=== PATIENT | male | born 1935 | race Caucasian/White ===

== ENCOUNTER → 2017-01-11 | Outpatient (CLI) | payer MEDICARE, OTHER ==
[2017-01-11 14:53] LABS: CHLORIDE,CL 101 mmol/L (98-110); SODIUM,NA 138 mmol/L (136-146)
== END ==
LOC: MW.CHFP 13:48
PROVIDERS: ATTEND Emergency Medicine
DX: Z51.81 Encounter for therapeutic drug level monitoring (principal); E11.9 Type 2 diabetes mellitus without complications; I10 Essential (primary) hypertension; I48.91 Unspecified atrial fibrillation; Z79.01 Long term (current) use of anticoagulants
CPT/HCPCS: 36415; 80048; 83036; 85027; 85610; G0463

== ENCOUNTER 2017-01-21 | Emergency (ER) | payer MEDICARE, OTHER ==
--- NOTE | 2017-01-21 00:16 | EDM.PDOC ---
ED HISTORY OF PRESENT ILLNESS - General Chief Complaint: Respiratory Problem Stated Complaint: TROUBLE BREATHING Time Seen by Provider: 01/21/17 00:15 Source of Information: Reports: Patient - History of Present Illness INITIAL COMMENTS - FREE TEXT/NARRATIVE: HISTORY AND PHYSICAL: History of present illness: [] Patient presents with multiple complaints, but later he denied having. Seems that he is having some trouble in his home making it to the bathroom as he has urge to urinate, he then urinates and is brief, and then when he gets to the bathroom he no longer has to urinate. He had complained of some shortness of breath however he is not short of breath , denies any shortness of breath at current, no orthopnea. He has loose stools and is unable to make it to the bathroom sometimes he soils his brief this is concerning to him and his He has known history of COPD, BPH, diabetes, cardiac history He has recent admission on file with similar complaints at that time he is having some difficulty with COPD and was admitted for such, he did have a full stool workup with negative stool cultures negative C. difficile Here in the emergency room when asked to provide a urine here was able to provide urine without any difficulty. Review of systems: As per history of present illness and below otherwise all systems reviewed and negative. Past medical history: As per history of present illness and as reviewed below otherwise noncontributory. Surgical history: As per history of present illness and as reviewed below otherwise noncontributory. Social history: No reported history of drug or alcohol abuse. Family history: As per history of present illness and as reviewed below otherwise noncontributory. Physical exam: HEENT: Atraumatic, normocephalic, pupils reactive, negative for conjunctival pallor or scleral icterus, mucous membranes moist, throat clear, neck supple, nontender, trachea midline. Lungs: Clear to auscultation, breath sounds equal bilaterally, chest nontender. Heart: S1S2, regular, negative for clicks, rubs, or JVD. Abdomen: Soft, nondistended, nontender. Negative for masses or hepatosplenomegaly. Negative for costovertebral tenderness. Pelvis: Stable nontender. Genitourinary: Deferred. Rectal: Deferred. Extremities: Atraumatic, negative for cords or calf pain. Neurovascular unremarkable. Neuro: Awake, alert, oriented. Cranial nerves II through XII unremarkable. Cerebellum unremarkable. Motor and sensory unremarkable throughout. Exam nonfocal. Diagnostics: [] As below EKG Chest one view Therapeutics: []none in the ER A prescription of Flomax was provided Followup with Dr. Barbosa concerning BPH Followup with primary care as needed Impression: [] Chronic history of baseline Definitive disposition and diagnosis as appropriate pending reevaluation and review of above. - Related Data Allergies/ADRs: Allergies Allergy/AdvReac Type Severity Reaction Status Date / Time No Known Allergies Allergy Verified 01/21/17 00:02 Home Meds: Home Meds Albuterol Sulfate [Albuterol Sulfate HFA] 2 inh IH Q6HR PRN 04/19/14 [History] Brimonidine Tartrate [Alphagan P 0.1% Ophth Soln] 1 drop EYEBOTH BID 04/19/14 [ History] Latanoprost [Xalatan 0.005% Ophth Soln] 1 drop EYEBOTH BEDTIME 04/19/14 [History ] PARoxetine HCl [Paroxetine HCl] 10 mg PO BID 04/19/14 [History] QUEtiapine Fumarate [Quetiapine Fumarate] 50 mg PO BEDTIME 04/19/14 [History] atorvaSTATin Calcium [Atorvastatin Calcium] 40 mg PO BEDTIME 04/19/14 [History] Aspirin [Adan Chewable Aspirin] 81 mg PO DAILY #30 tab.chew 04/28/14 [Rx] Digoxin [Lanoxin] 125 mcg PO DAILY #30 tab 04/28/14 [Rx] Warfarin [Coumadin] 5 mg PO DAILY #10 tablet 06/17/14 [Rx] Oxybutynin 2.5 mg PO BEDTIME 08/11/16 [History] Diltiazem [Cardizem CD] 120 mg PO DAILY 01/03/17 [History] Furosemide [Lasix] 20 mg PO DAILY 01/03/17 [History] Docusate Sodium/Sennosides [Senna Plus] 1 tab PO SUTUTH@2100 01/04/17 [History] buPROPion [buPROPion XL] 150 mg PO DAILY 01/04/17 [History] metFORMIN HCl [Metformin HCl] 1,000 mg PO BIDMEALS 01/04/17 [History] Metoprolol Tartrate [Lopressor] 150 mg PO BID #180 tablet 01/07/17 [Rx] Past Medical History HEENT History: Reports: Glaucoma, Hard of hearing Cardiovascular History: Reports: Afib, High cholesterol, Hypertension Respiratory History: Reports: COPD, PE Other Gastrointestinal History: recurrent cholecystitis Genitourinary History: Reports: Urinary incontinence Psychiatric History: Reports: Depression Endocrine/Metabolic History: Reports: Diabetes, type II Dermatologic History: Reports: Other (see below) Other Dermatologic History: wound not healing left leg - Past Surgical History Cardiovascular Surgical History: Reports: Pacer GI Surgical History: Reports: Appendectomy, Cholecystectomy, Hernia, inguinal Social & Family History - Family History Family Medical History: Noncontributory HEENT: Reports: Cataract, Impaired vision GI: Reports: Other (see below) Other GI Family History: unable to recall OBGYN: Reports: Endocrine/Metabolic: Reports: Diabetes, type II - Tobacco Use Smoking Status *Q: Former Smoker Years of Tobacco use: 20 Used Tobacco, but Quit: Yes Month Tobacco Last Used: 40 yrs ago Second Hand Smoke Exposure: No - Caffeine Use Caffeine Use: Reports: None - Alcohol Use Days Per Week of Alcohol Use: 0 - Recreational Drug Use Recreational Drug Use: No ED ROS GENERAL - Review of Systems Review Of Systems: ROS reveals no pertinent complaints other than HPI. ED EXAM, GENERAL - Physical Exam Exam: See Below Course - Vital Signs Last Recorded V/S: Last Vital Signs Temp 35.7 C 01/21/17 00:03 Pulse 70 01/21/17 00:03 Resp 19 01/21/17 00:03 BP 149/70 H 01/21/17 00:03 Pulse Ox 93 L 01/21/17 00:03 - Orders/Labs/Meds Orders: Active Orders 24 hr Category Date Time Status EKG Documentation Completion [RC] STAT Care 01/21/17 00:14 Active Chest 1V Frontal [CR] Stat Exams 01/21/17 00:14 Taken Labs: Laboratory Tests 01/21/17 01/21/17 01/21/17 Range/Units 00:25 00:25 00:25 WBC 10.91 (4.0-11.0) K/uL RBC 4.61 (4.50-5.90) M/uL Hgb 14.1 (13.0-17.0) g/dL Hct 43.9 (38.0-50.0) % MCV 95.2 (80.0-98.0) fL MCH 30.6 (27.0-32.0) pg MCHC 32.1 (31.0-37.0) g/dL RDW Std Deviation 48.9 (28.0-62.0) fl RDW Coeff of Yancy 14 (11.0-15.0) % Plt Count 244 (150-400) K/uL MPV 10.10 (7.40-12.00) fL Neut % (Auto) 64.7 (48.0-80.0) % Lymph % (Auto) 24.8 (16.0-40.0) % [place] % (Auto) 7.6 (0.0-15.0) % Eos % (Auto) 2.4 (0.0-7.0) % Baso % (Auto) 0.5 (0.0-1.5) % Neut # 7.1 H (1.4-5.7) K/uL Lymph # 2.7 H (0.6-2.4) K/uL [place] # 0.8 (0.0-0.8) K/uL Eos # 0.3 (0.0-0.7) K/uL Baso # 0.1 (0.0-0.1) K/uL Nucleated RBC % 0.0 /100WBC Nucleated RBCs # 0 K/uL INR (0.86-1.11) Sodium 137 (136-146) mmol/L Potassium 4.2 (3.5-5.1) mmol/L Chloride 101 (98-110) mmol/L Carbon Dioxide 25 (21-31) mmol/L BUN 17 (6.0-23.0) mg/dL Creatinine 1.2 (0.6-1.5) mg/dL Est Cr Clr Drug Dosing 51.54 mL/min Estimated GFR (MDRD) 58.4 ml/min Glucose 158 H (60-110) mg/dL Calcium 8.7 L (8.8-10.8) mg/dL Total Bilirubin 0.5 (0.1-1.5) mg/dL AST 27 (5-40) IU/L ALT 38 (8-54) IU/L Alkaline Phosphatase 60 (40-150) Troponin I < 0.10 (0.0-0.29) NG/ML B-Natriuretic Peptide (<100) PG/ML Total Protein 6.0 (6.0-8.0) g/dL Albumin 3.2 L (3.4-4.8) g/dL Globulin 2.8 (2.0-3.5) g/dL Albumin/Globulin Ratio 1.1 L (1.3-2.8) Urine Color Urine Appearance Urine pH (5.0-8.0) Ur Specific [place] (1.001-1.035) Urine Protein (NEGATIVE) mg/dL Urine Glucose (UA) (NEGATIVE) mg/dL Urine Ketones (NEGATIVE) mg/dL Urine Occult Blood (NEGATIVE) Urine Nitrite (NEGATIVE) Urine Bilirubin (NEGATIVE) Urine Urobilinogen (<2.0) EU/dL Ur Leukocyte Esterase (NEGATIVE) Urine RBC (0-2/HPF) Urine WBC (0-5/HPF) Ur Epithelial Cells (NONE-FEW) Urine Bacteria (NEGATIVE) Urine Sperm (NEGATIVE) 01/21/17 01/21/17 01/21/17 Range/Units 00:25 00:29 00:40 WBC (4.0-11.0) K/uL RBC (4.50-5.90) M/uL Hgb (13.0-17.0) g/dL Hct (38.0-50.0) % MCV (80.0-98.0) fL MCH (27.0-32.0) pg MCHC (31.0-37.0) g/dL RDW Std Deviation (28.0-62.0) fl RDW Coeff of Yancy (11.0-15.0) % Plt Count (150-400) K/uL MPV (7.40-12.00) fL Neut % (Auto) (48.0-80.0) % Lymph % (Auto) (16.0-40.0) % [place] % (Auto) (0.0-15.0) % Eos % (Auto) (0.0-7.0) % Baso % (Auto) (0.0-1.5) % Neut # (1.4-5.7) K/uL Lymph # (0.6-2.4) K/uL [place] # (0.0-0.8) K/uL Eos # (0.0-0.7) K/uL Baso # (0.0-0.1) K/uL Nucleated RBC % /100WBC Nucleated RBCs # K/uL INR 2.53 H (0.86-1.11) Sodium (136-146) mmol/L Potassium (3.5-5.1) mmol/L Chloride (98-110) mmol/L Carbon Dioxide (21-31) mmol/L BUN (6.0-23.0) mg/dL Creatinine (0.6-1.5) mg/dL Est Cr Clr Drug Dosing mL/min Estimated GFR (MDRD) ml/min Glucose (60-110) mg/dL Calcium (8.8-10.8) mg/dL Total Bilirubin (0.1-1.5) mg/dL AST (5-40) IU/L ALT (8-54) IU/L Alkaline Phosphatase (40-150) Troponin I (0.0-0.29) NG/ML B-Natriuretic Peptide 132 H (<100) PG/ML Total Protein (6.0-8.0) g/dL Albumin (3.4-4.8) g/dL Globulin (2.0-3.5) g/dL Albumin/Globulin Ratio (1.3-2.8) Urine Color YELLOW Urine Appearance CLEAR Urine pH 6.0 (5.0-8.0) Ur Specific [place] 1.015 (1.001-1.035) Urine Protein NEGATIVE (NEGATIVE) mg/dL Urine Glucose (UA) 250 H (NEGATIVE) mg/dL Urine Ketones NEGATIVE (NEGATIVE) mg/dL Urine Occult Blood TRACE-LYSED (NEGATIVE) Urine Nitrite NEGATIVE (NEGATIVE) Urine Bilirubin NEGATIVE (NEGATIVE) Urine Urobilinogen 0.2 (<2.0) EU/dL Ur Leukocyte Esterase SMALL (NEGATIVE) Urine RBC 0-1 (0-2/HPF) Urine WBC 0-2 (0-5/HPF) Ur Epithelial Cells RARE (NONE-FEW) Urine Bacteria RARE (NEGATIVE) Urine Sperm 0-1 (NEGATIVE) Departure - Departure Time of Disposition: 01:34 Disposition: Home, Self-Care 01 Condition: good Clinical Impression: BPH (benign prostatic hyperplasia) Forms: ED Department Discharge Additional Instructions: Medications as prescribed Followup with Dr. Barbosa concerning BPH Return if symptoms persist or worsen Followup with primary care in the interim as needed [facility] - Primary [facility] [address] [place] [id number] [facility] [address] [place] [address] The following information is given to patients seen in the emergency department who are being discharged to home. This information is to outline your options for follow-up care. We provide all patients seen in our emergency department with a follow-up referral. The need for follow-up, as well as the timing and circumstances, are variable depending upon the specifics of your emergency department visit. If you don't have a primary care physician on staff, we will provide you with a referral. We always advise you to contact your personal physician following an emergency department visit to inform them of the circumstance of the visit and for follow-up with them and/or the need for any referrals to a consulting specialist. The emergency department will also refer you to a specialist when appropriate. This referral assures that you have the opportunity for follow-up care with a specialist. All of these measure are taken in an effort to provide you with optimal care, which includes your follow-up. Under all circumstances we always encourage you to contact your private physician who remains a resource for coordinating your care. When calling for follow-up care, please make the office aware that this follow-up is from your recent emergency room visit. If for any reason you are refused follow-up, please contact the [facility] emergency department at and asked to speak to the emergency department charge nurse. - My Orders Last 24 Hours: My Active Orders 01/21/17 00:14 EKG Documentation Completion [RC] STAT Chest 1V Frontal [CR] Stat - Assessment/Plan Last 24 Hours: My Active Orders 01/21/17 00:14 EKG Documentation Completion [RC] STAT Chest 1V Frontal [CR] Stat
[2017-01-21 01:44] VITALS: BP 139/74
--- NOTE | 2017-01-21 19:06 | CR ---
EXAM DATE: 01/21/17 PATIENT'S AGE: 81 Patient: ROSELYN MELISSA Facility: [place], [place] Site . Site : [id number] Study: XRay Chest [id number] 12:38:43 AM Ordering Physician: Katerina Corona Final Report: INDICATION: Pain TECHNIQUE: Chest 1 view. COMPARISON: 01/03/2017 FINDINGS: Cardiovascular and mediastinum: Heart size and vasculature are normal in caliber and appearance. Mediastinum is within normal limits. Left-sided transvenous pacer device. Lungs and pleural space: Lungs are clear. No sign of infiltrate or mass. No sign of pleural effusion. No pneumothorax. Bones and soft tissues: No significant findings. IMPRESSION: Unremarkable chest. Dictated by Dex Mcelroy MD @ 01/21/2017 12:41:55 AM Dictated by: Dex Mcelroy MD @ 01/21/2017 00:42:02 (Electronic Signature) Report Signed by Proxy and Original Signed Document filed in the Medical Record. MTDD
== END 2017-01-21 01:42 | disposition home or self-care (01) ==
LOC: MW.ED
DX: N40.1 Benign prostatic hyperplasia with lower urinary tract symptoms (principal); I10 Essential (primary) hypertension; J44.9 Chronic obstructive pulmonary disease, unspecified; E78.00 Pure hypercholesterolemia, unspecified; F32.9 Major depressive disorder, single episode, unspecified; E11.9 Type 2 diabetes mellitus without complications; Z79.01 Long term (current) use of anticoagulants; Z90.49 Acquired absence of other specified parts of digestive tract; Z95.0 Presence of cardiac pacemaker; Z79.82 Long term (current) use of aspirin; Z79.899 Other long term (current) drug therapy; Z79.84 Long term (current) use of oral hypoglycemic drugs; Z87.891 Personal history of nicotine dependence; R39.15 Urgency of urination
CPT/HCPCS: 51798; 71010; 71010-26; 76872; 80053; 81001; 83880; 84484; 85025; 85610; 87804; 93005; 99202; 99283; 99285-25

== ENCOUNTER → 2017-01-21 | Outpatient (CLI) | payer MEDICARE, OTHER | LOC: MW.CHUR 10:41 | CPT/HCPCS: 51798; 76872; 99202 ==

== ENCOUNTER 2017-01-23 00:52 | Inpatient (IN) | payer MEDICARE, OTHER ==
--- NOTE | 2017-01-23 01:18 | EDM.PDOC ---
ED HPI GENERAL MEDICAL PROBLEM - General Chief Complaint: General Stated Complaint: FELL Time Seen by Provider: 01/23/17 01:07 - History of Present Illness INITIAL COMMENTS - FREE TEXT/NARRATIVE: HISTORY AND PHYSICAL: History of present illness: Patient is 81 year white male with history of dementia whose had a history of frequent falls who presents status post fall which the circumstances are unknown patient does not have any complaints upon arrival here he was found by his he is reportedly on Coumadin as well as multiple other medications he denies chest pain shortness of breath palpitations back hip or extremity pain Review of systems: As per history of present illness and below otherwise all systems reviewed and negative. Past medical history: As per history of present illness and as reviewed below otherwise noncontributory. Surgical history: As per history of present illness and as reviewed below otherwise noncontributory. Social history: No reported history of drug or alcohol abuse. Family history: As per history of present illness and as reviewed below otherwise noncontributory. Physical exam: HEENT: Atraumatic, normocephalic, pupils reactive, negative for conjunctival pallor or scleral icterus, mucous membranes moist, throat clear, neck supple, nontender, trachea midline. Lungs: Clear to auscultation, breath sounds equal bilaterally, chest nontender. Heart: S1S2, regular, negative for clicks, rubs, or JVD. Abdomen: Soft, nondistended, nontender. Negative for masses or hepatosplenomegaly. Negative for costovertebral tenderness. Pelvis: Stable nontender. Genitourinary: Deferred. Rectal: Deferred. Extremities: Atraumatic, negative for cords or calf pain. Neurovascular unremarkable. Neuro: Awake, alert, follows commands moves all extremities limited grossly nonfocal exam Diagnostics: CBC CMP troponin PT INR UA chest x-ray EKG CT brain Therapeutics: IV O2 monitor Impression: #1 observation status post fall #2 dementia Definitive disposition and diagnosis as appropriate pending reevaluation and review of above. - Related Data Allergies Allergy/AdvReac Type Severity Reaction Status Date / Time No Known Allergies Allergy Verified 01/23/17 00:54 Home Meds: Home Meds Albuterol Sulfate [Albuterol Sulfate HFA] 2 inh IH Q6HR PRN 04/19/14 [History] Brimonidine Tartrate [Alphagan P 0.1% Ophth Soln] 1 drop EYEBOTH BID 06/02/14 [ History] Latanoprost [Xalatan 0.005% Ophth Soln] 1 drop EYEBOTH BEDTIME 04/19/14 [History ] PARoxetine HCl [Paroxetine HCl] 10 mg PO BID 04/19/14 [History] QUEtiapine Fumarate [Quetiapine Fumarate] 50 mg PO BEDTIME 04/19/14 [History] atorvaSTATin Calcium [Atorvastatin Calcium] 40 mg PO BEDTIME 04/19/14 [History] Aspirin [Adan Chewable Aspirin] 81 mg PO DAILY #30 tab.chew 04/28/14 [Rx] Digoxin [Lanoxin] 125 mcg PO DAILY #30 tab 04/28/14 [Rx] Warfarin [Coumadin] 5 mg PO DAILY #10 tablet 06/17/14 [Rx] Oxybutynin 2.5 mg PO BEDTIME 08/11/16 [History] Diltiazem [Cardizem CD] 120 mg PO DAILY 01/03/17 [History] Furosemide [Lasix] 20 mg PO DAILY 01/03/17 [History] buPROPion [buPROPion XL] 150 mg PO DAILY 01/04/17 [History] metFORMIN HCl [Metformin HCl] 1,000 mg PO BIDMEALS 01/04/17 [History] Metoprolol Tartrate [Lopressor] 150 mg PO BID #180 tablet 01/07/17 [Rx] Bisacodyl [Gentle Laxative] 10 mg RC 01/23/17 [History] Past Medical History - Past Health History Medical/Surgical History: Denies Medical/Surgical History HEENT History: Reports: Glaucoma, Hard of hearing Cardiovascular History: Reports: Afib, High cholesterol, Hypertension Respiratory History: Reports: COPD, PE Other Gastrointestinal History: recurrent cholecystitis Genitourinary History: Reports: Urinary incontinence Musculoskeletal History: Reports: None Psychiatric History: Reports: Dementia, Depression Endocrine/Metabolic History: Reports: Diabetes, type II Dermatologic History: Reports: Other (see below) Other Dermatologic History: wound not healing left leg - Infectious Disease History Infectious Disease History: Reports: None - Past Surgical History Cardiovascular Surgical History: Reports: Pacer GI Surgical History: Reports: Appendectomy, Cholecystectomy, Hernia, inguinal Social & Family History - Family History Family Medical History: Noncontributory HEENT: Reports: Cataract, Impaired vision GI: Reports: Other (see below) Other GI Family History: unable to recall OBGYN: Reports: Endocrine/Metabolic: Reports: Diabetes, type II - Tobacco Use Smoking Status *Q: Never Smoker Years of Tobacco use: 20 Used Tobacco, but Quit: Yes Month Tobacco Last Used: 40 yrs ago Second Hand Smoke Exposure: No - Caffeine Use Caffeine Use: Reports: None - Alcohol Use Days Per Week of Alcohol Use: 0 - Recreational Drug Use Recreational Drug Use: No ED ROS GENERAL - Review of Systems Review Of Systems: ROS reveals no pertinent complaints other than HPI. ED EXAM, GENERAL - Physical Exam Exam: See Below (See dictation) Course - Vital Signs Last Recorded V/S: Last Vital Signs Temp 36.0 C 01/23/17 00:54 Pulse 70 01/23/17 00:54 Resp 16 01/23/17 00:54 BP 128/61 01/23/17 00:54 Pulse Ox 96 01/23/17 00:54 - Orders/Labs/Meds Orders: Active Orders 24 hr Category Date Time Status EKG Documentation Completion [RC] STAT Care 01/23/17 01:12 Active Chest 1V Frontal [CR] Stat Exams 01/23/17 01:13 Taken Head wo Cont [CT] Stat Exams 01/23/17 01:13 Taken Labs: Laboratory Tests 01/23/17 01/23/17 01/23/17 Range/Units 01:25 01:25 01:25 WBC 9.43 (4.0-11.0) K/uL RBC 4.13 L (4.50-5.90) M/uL Hgb 12.8 L (13.0-17.0) g/dL Hct 39.3 (38.0-50.0) % MCV 95.2 (80.0-98.0) fL MCH 31.0 (27.0-32.0) pg MCHC 32.6 (31.0-37.0) g/dL RDW Std Deviation 48.6 (28.0-62.0) fl RDW Coeff of Yancy 14 (11.0-15.0) % Plt Count 234 (150-400) K/uL MPV 9.90 (7.40-12.00) fL Neut % (Auto) 59.1 (48.0-80.0) % Lymph % (Auto) 30.5 (16.0-40.0) % [place] % (Auto) 7.3 (0.0-15.0) % Eos % (Auto) 2.7 (0.0-7.0) % Baso % (Auto) 0.4 (0.0-1.5) % Neut # 5.6 (1.4-5.7) K/uL Lymph # 2.9 H (0.6-2.4) K/uL [place] # 0.7 (0.0-0.8) K/uL Eos # 0.3 (0.0-0.7) K/uL Baso # 0.0 (0.0-0.1) K/uL Nucleated RBC % 0.0 /100WBC Nucleated RBCs # 0 K/uL INR 2.05 H (0.86-1.11) Sodium 137 (136-146) mmol/L Potassium 4.2 (3.5-5.1) mmol/L Chloride 103 (98-110) mmol/L Carbon Dioxide 23 (21-31) mmol/L BUN 15 (6.0-23.0) mg/dL Creatinine 1.3 (0.6-1.5) mg/dL Est Cr Clr Drug Dosing 47.69 mL/min Estimated GFR (MDRD) 53.3 ml/min Glucose 161 H (60-110) mg/dL Calcium 8.4 L (8.8-10.8) mg/dL Total Bilirubin 0.7 (0.1-1.5) mg/dL AST 24 (5-40) IU/L ALT 36 (8-54) IU/L Alkaline Phosphatase 53 (40-150) Troponin I (0.0-0.29) NG/ML Total Protein 5.6 L (6.0-8.0) g/dL Albumin 2.9 L (3.4-4.8) g/dL Globulin 2.7 (2.0-3.5) g/dL Albumin/Globulin Ratio 1.1 L (1.3-2.8) Urine Color Urine Appearance Urine pH (5.0-8.0) Ur Specific [place] (1.001-1.035) Urine Protein (NEGATIVE) mg/dL Urine Glucose (UA) (NEGATIVE) mg/dL Urine Ketones (NEGATIVE) mg/dL Urine Occult Blood (NEGATIVE) Urine Nitrite (NEGATIVE) Urine Bilirubin (NEGATIVE) Urine Urobilinogen (<2.0) EU/dL Ur Leukocyte Esterase (NEGATIVE) Urine RBC (0-2/HPF) Urine WBC (0-5/HPF) Ur Epithelial Cells (NONE-FEW) Urine Bacteria (NEGATIVE) Urine Mucus (NONE-MOD) 01/23/17 01/23/17 Range/Units 01:25 02:40 WBC (4.0-11.0) K/uL RBC (4.50-5.90) M/uL Hgb (13.0-17.0) g/dL Hct (38.0-50.0) % MCV (80.0-98.0) fL MCH (27.0-32.0) pg MCHC (31.0-37.0) g/dL RDW Std Deviation (28.0-62.0) fl RDW Coeff of Yancy (11.0-15.0) % Plt Count (150-400) K/uL MPV (7.40-12.00) fL Neut % (Auto) (48.0-80.0) % Lymph % (Auto) (16.0-40.0) % [place] % (Auto) (0.0-15.0) % Eos % (Auto) (0.0-7.0) % Baso % (Auto) (0.0-1.5) % Neut # (1.4-5.7) K/uL Lymph # (0.6-2.4) K/uL [place] # (0.0-0.8) K/uL Eos # (0.0-0.7) K/uL Baso # (0.0-0.1) K/uL Nucleated RBC % /100WBC Nucleated RBCs # K/uL INR (0.86-1.11) Sodium (136-146) mmol/L Potassium (3.5-5.1) mmol/L Chloride (98-110) mmol/L Carbon Dioxide (21-31) mmol/L BUN (6.0-23.0) mg/dL Creatinine (0.6-1.5) mg/dL Est Cr Clr Drug Dosing mL/min Estimated GFR (MDRD) ml/min Glucose (60-110) mg/dL Calcium (8.8-10.8) mg/dL Total Bilirubin (0.1-1.5) mg/dL AST (5-40) IU/L ALT (8-54) IU/L Alkaline Phosphatase (40-150) Troponin I < 0.10 (0.0-0.29) NG/ML Total Protein (6.0-8.0) g/dL Albumin (3.4-4.8) g/dL Globulin (2.0-3.5) g/dL Albumin/Globulin Ratio (1.3-2.8) Urine Color YELLOW Urine Appearance CLEAR Urine pH 5.5 (5.0-8.0) Ur Specific [place] 1.020 (1.001-1.035) Urine Protein NEGATIVE (NEGATIVE) mg/dL Urine Glucose (UA) NEGATIVE (NEGATIVE) mg/dL Urine Ketones NEGATIVE (NEGATIVE) mg/dL Urine Occult Blood TRACE-INTACT (NEGATIVE) Urine Nitrite NEGATIVE (NEGATIVE) Urine Bilirubin NEGATIVE (NEGATIVE) Urine Urobilinogen 0.2 (<2.0) EU/dL Ur Leukocyte Esterase TRACE (NEGATIVE) Urine RBC 0-2 (0-2/HPF) Urine WBC 0-3 (0-5/HPF) Ur Epithelial Cells RARE (NONE-FEW) Urine Bacteria RARE (NEGATIVE) Urine Mucus LIGHT (NONE-MOD) Departure - Departure Time of Disposition: 03:03 Disposition: Home, Self-Care 01 Condition: good Clinical Impression: Fall Atrial fibrillation Qualifiers: Atrial fibrillation type: unspecified Qualified Code(s): I48.91 - Unspecified atrial fibrillation Forms: ED Department Discharge Additional Instructions: The following information is given to patients seen in the emergency department who are being discharged to home. This information is to outline your options for follow-up care. We provide all patients seen in our emergency department with a follow-up referral. The need for follow-up, as well as the timing and circumstances, are variable depending upon the specifics of your emergency department visit. If you don't have a primary care physician on staff, we will provide you with a referral. We always advise you to contact your personal physician following an emergency department visit to inform them of the circumstance of the visit and for follow-up with them and/or the need for any referrals to a consulting specialist. The emergency department will also refer you to a specialist when appropriate. This referral assures that you have the opportunity for followup care with a specialist. All of these measure are taken in an effort to provide you with optimal care, which includes your followup. Under all circumstances we always encourage you to contact your private physician who remains a resource for coordinating your care. When calling for followup care, please make the office aware that this follow-up is from your recent emergency room visit. If for any reason you are refused follow-up, please contact the [facility] emergency department at and asked to speak to the emergency department charge nurse. Continue current medications follow up primary medical doctor one to 2 days return as needed as discussed - My Orders Last 24 Hours: My Active Orders 01/23/17 01:12 EKG Documentation Completion [RC] STAT 01/23/17 01:13 Chest 1V Frontal [CR] Stat Head wo Cont [CT] Stat - Assessment/Plan Last 24 Hours: My Active Orders 01/23/17 01:12 EKG Documentation Completion [RC] STAT 01/23/17 01:13 Chest 1V Frontal [CR] Stat Head wo Cont [CT] Stat
[2017-01-23] MEDS ORDERED: Albuterol/Ipratropium 3.0-0.5 MG/3 ML Neb Soln NEB PRN (06:15)
[2017-01-23] MEDS ORDERED: Sodium Chloride 0.9% 10 ML Syringe FLUSH PRN (06:15)
[2017-01-23] MEDS ORDERED: Sodium Chloride 0.9% 2.5 ML Syringe FLUSH PRN (06:15)
[2017-01-23] MEDS: PARoxetine 20 MG Tab PO SCH ×2 (08:32→21:32)
[2017-01-23] MEDS: Piperacillin/Tazobactam 4.5 GM in Sodium Chloride 0.9% 100 ML IV SCH ×3 (08:32→19:59)
[2017-01-23] MEDS: Diltiazem 120 MG Cap.CD PO SCH (08:33)
[2017-01-23] MEDS: Metoprolol Tartrate 50 MG Tab PO SCH ×2 (08:33→21:34)
[2017-01-23] MEDS: Digoxin 125 MCG Tab PO SCH (08:33)
[2017-01-23] MEDS: buPROPion 150 MG Tab.ER PO SCH (08:34)
[2017-01-23] MEDS: Aspirin 81 MG Tab.Chew PO SCH (08:34)
[2017-01-23] MEDS: Insulin Aspart 100 Units/ML 3 ML Pen SUBCUT SCH ×5 (08:36→21:31)
[2017-01-23] MEDS: OPTH EYEBOTH SCH ×2 (08:37→21:40)
[2017-01-23] MEDS: ALPHAGAN P 0.1% EYEBOTH SCH ×2 (08:37→21:40)
--- NOTE | 2017-01-23 09:35 | PCM.HP ---
<Marina Mauricio - Last Filed: 01/23/17 11:35> H&P History of Present Illness - General Date of Service: 01/23/17 Admit Problem/Dx: Admission Diagnosis/Problem Admission Diagnosis/Problem Weakness Source of Information: Patient, Family - History of Present Illness Initial Comments - Free Text/Narative: 81 yo male readmitted for fall. He felt out of balance when walking. He denies lightheadeness, syncope or chest pain. He has not taken any new medications. He has a history of a-fib on Coumadin. He also states that he scratched his lower extremities that caused a rash. I was not able to obtain further history since he said he spoke to Dr. Houston and feels tired. He wants to rest. - Related Data Allergies/Adverse Reactions: Allergies Allergy/AdvReac Type Severity Reaction Status Date / Time No Known Allergies Allergy Verified 01/23/17 00:54 Home Medications: Home Meds Albuterol Sulfate [Albuterol Sulfate HFA] 2 inh IH Q6HR PRN 04/19/14 [History] Brimonidine Tartrate [Alphagan P 0.1% Ophth Soln] 1 drop EYEBOTH BID 04/19/14 [ History] Latanoprost [Xalatan 0.005% Ophth Soln] 1 drop EYEBOTH BEDTIME 04/19/14 [History ] PARoxetine HCl [Paroxetine HCl] 10 mg PO BID 04/19/14 [History] atorvaSTATin Calcium [Atorvastatin Calcium] 20 mg PO BEDTIME 04/19/14 [History] Aspirin [Adan Chewable Aspirin] 81 mg PO DAILY #30 tab.chew 04/28/14 [Rx] Digoxin [Lanoxin] 125 mcg PO DAILY #30 tab 04/28/14 [Rx] Oxybutynin 2.5 mg PO BEDTIME 08/11/16 [History] Diltiazem [Cardizem CD] 120 mg PO DAILY 01/03/17 [History] Furosemide [Lasix] 20 mg PO DAILY 01/03/17 [History] buPROPion [buPROPion XL] 150 mg PO DAILY 01/04/17 [History] metFORMIN HCl [Metformin HCl] 1,000 mg PO BIDMEALS 01/04/17 [History] Metoprolol Tartrate [Lopressor] 150 mg PO BID #180 tablet 01/07/17 [Rx] QUEtiapine [SEROquel] 50 mg PO BEDTIME 01/23/17 [History] Warfarin [Coumadin] 5 mg PO BEDTIME 01/23/17 [History] Past Medical History - Past Health History Medical/Surgical History: Denies Medical/Surgical History HEENT History: Reports: Glaucoma, Hard of hearing Cardiovascular History: Reports: Afib, High cholesterol, Hypertension Respiratory History: Reports: COPD, PE Other Gastrointestinal History: recurrent cholecystitis Genitourinary History: Reports: Prostate disorder, Urinary incontinence Musculoskeletal History: Reports: None Neurological History: Reports: Other (see below) Other Neuro History: Dementia Psychiatric History: Reports: Dementia, Depression Endocrine/Metabolic History: Reports: Diabetes, type II Dermatologic History: Reports: Other (see below) Other Dermatologic History: Cellulitis notd at left sheen, Right sheen, back of the knee. Old wound noted at lower and upper extremities - Infectious Disease History Infectious Disease History: Reports: None - Past Surgical History Cardiovascular Surgical History: Reports: Pacer GI Surgical History: Reports: Appendectomy, Cholecystectomy, Hernia, inguinal Social & Family History - Family History Family Medical History: Noncontributory HEENT: Reports: Cataract, Impaired vision GI: Reports: Other (see below) Other GI Family History: unable to recall OBGYN: Reports: Endocrine/Metabolic: Reports: Diabetes, type II - Tobacco Use Smoking Status *Q: Former Smoker Years of Tobacco use: 20 Used Tobacco, but Quit: Yes Month Tobacco Last Used: 40 yrs ago Second Hand Smoke Exposure: No - Caffeine Use Caffeine Use: Reports: Coffee - Alcohol Use Days Per Week of Alcohol Use: 0 - Recreational Drug Use Recreational Drug Use: No H&P Review of Systems - Review of Systems: Review Of Systems: See Below General: Reports: no symptoms HEENT: Reports: no symptoms Pulmonary: Reports: no symptoms Cardiovascular: Reports: no symptoms Gastrointestinal: Reports: No symptoms Musculoskeletal: Reports: no symptoms Skin: Reports: no symptoms Psychiatric: Reports: no symptoms Neurological: Reports: no symptoms Exam - Exam Exam: See Below - Vital Signs Vital Signs: Last Vital Signs Temp 98.5 F 01/23/17 08:00 Pulse 70 01/23/17 08:33 Resp 20 01/23/17 08:00 BP 121/67 01/23/17 08:33 Pulse Ox 93 L 01/23/17 08:00 Weight: 255 lb 4.725 oz - Exam General: alert, oriented HEENT: EOMI Neck: supple, trachea midline Lungs: Clear to auscultation Cardiovascular: regular rate, regular rhythm Abdomen: normal bowel sounds, soft Skin: other (right lower extremity: anterior shins: erythematous lesions. NO warmth, NO tenderness. ) Neurological: cranial nerves intact Neuro Extensive - Mental Status: alert, oriented x3 Psychiatric: alert, normal affect, normal mood - Patient Data Lab Results last 24 hrs: Laboratory Results - last 24 hr 01/23/17 Range/Units 07:59 POC Glucose 186 H (60-110) mg/dL Result Diagrams: 01/23/17 01:25 01/23/17 01:25 Kaveh Results last 24 hrs: Microbiology 01/23/17 08:08 Anaerobic Blood Culture - Final Blood - Venous *Q Meaningful Use (ADM) - VTE *Q VTE Criteria *Q: - Stroke *Q Stroke Criteria *Q: - AMI *Q AMI Criteria *Q: Problem List Initiated/Reviewed/Updated: Yes Orders Last 24hrs: Active Orders 24 hr Category Date Time Status Patient Status [ADT] Routine ADT 01/23/17 06:15 Active Antiembolic Devices [RC] PER UNIT ROUTINE Care 01/23/17 06:18 Active Neuro Check [RC] Q2HR Care 01/23/17 06:26 Active Oxygen Therapy [RC] PRN Care 01/23/17 06:15 Active Pulse Oximetry [RC] PRN Care 01/23/17 06:17 Active RT Aerosol Therapy [RC] ASDIRECTED Care 01/23/17 06:18 Active Telemetry Monitoring [Cardiac Monitoring] [RC] Q8H Care 01/23/17 06:25 Active Up ad [place] [RC] ASDIRECTED Care 01/23/17 06:15 Active VTE/DVT Education [RC] Q12H Care 01/23/17 06:15 Active Vital Signs [RC] Q4H Care 01/23/17 06:15 Active PT Evaluation and Treatment [CONS] Routine Cons 01/23/17 08:04 Active 2 Gram Sodium Diet [DIET] Diet 01/23/17 Breakfast Active Consistent Carbohydrate Diet [DIET] Diet 01/23/17 Breakfast Active BASIC METABOLIC PANEL,BMP [CHEM] AM Lab 01/24/17 05:11 Ordered BASIC METABOLIC PANEL,BMP [CHEM] AM Lab 01/25/17 05:11 Ordered BASIC METABOLIC PANEL,BMP [CHEM] AM Lab 01/26/17 05:11 Ordered BASIC METABOLIC PANEL,BMP [CHEM] AM Lab 01/27/17 05:11 Ordered BASIC METABOLIC PANEL,BMP [CHEM] AM Lab 01/28/17 05:11 Ordered CBC WITH AUTO DIFF [HEME] AM Lab 01/24/17 05:11 Ordered CBC WITH AUTO DIFF [HEME] AM Lab 01/25/17 05:11 Ordered CBC WITH AUTO DIFF [HEME] AM Lab 01/26/17 05:11 Ordered CBC WITH AUTO DIFF [HEME] AM Lab 01/27/17 05:11 Ordered CULTURE BLOOD [BC] Stat Lab 01/23/17 08:08 Results CULTURE BLOOD [BC] Stat Lab 01/23/17 08:13 Received Albuterol/Ipratropium [DuoNeb 3.0-0.5 MG/3 ML] Med 01/23/17 06:15 Active 3 ml NEB Q4HRRT PRN Aspirin Med 01/23/17 09:00 Active 81 mg PO DAILY Digoxin [Lanoxin] Med 01/23/17 09:00 Active 125 mcg PO DAILY Diltiazem [Cardizem CD] Med 01/23/17 09:00 Active 120 mg PO DAILY Insulin Aspart [NovoLOG] Med 01/23/17 06:45 Active See Protocol SUBCUT ACBED Latanoprost [Xalatan 0.005% Ophth Soln] Med 01/23/17 21:00 Active 0 ml EYEBOTH BEDTIME Metoprolol Tartrate [Lopressor] Med 01/23/17 09:00 Active 150 mg PO BID Oxybutynin Med 01/23/17 21:00 Active 2.5 mg PO BEDTIME PARoxetine [Paxil] Med 01/23/17 09:00 Active 10 mg PO BID Patient's Own Medication [Ptom] Med 01/23/17 09:00 Active 0 each EYEBOTH BID Piperacillin/Tazobactam [Piperacil-Tazobact] 4.5 gm Med 01/23/17 08:00 Active Sodium Chloride 0.9% [Normal Saline] 100 ml IV Q6H QUEtiapine [SEROquel] Med 01/23/17 21:00 Active 50 mg PO BEDTIME Sodium Chloride 0.9% [Saline Flush] Med 01/23/17 06:15 Active 10 ml FLUSH ASDIRECTED PRN Sodium Chloride 0.9% [Saline Flush] Med 01/23/17 06:15 Active 2.5 ml FLUSH ASDIRECTED PRN Vancomycin 1,750 mg Med 01/23/17 08:30 Active Sodium Chloride 0.9% [Normal Saline] 500 ml IV Q24H Vancomycin Pharmacy to Dose [Pharmacy to Dose - Med 01/23/17 07:45 Active Vancomycin] See Dose Instructions .XX ASDIRECTED Warfarin [Coumadin] Med 01/23/17 14:00 Active 5 mg PO DAILY@1400 buPROPion [Wellbutrin XL] Med 01/23/17 09:00 Active 150 mg PO DAILY Blood Culture x2 Reflex Set [OM.PC] Stat Oth 01/23/17 07:39 Ordered Peripheral IV Insertion Adult [OM.PC] Routine Oth 01/23/17 06:15 Ordered Resuscitation Status Routine Resus Stat 01/23/17 06:15 Ordered Medication Orders Albuterol/Ipratropium (Duoneb 3.0-0.5 Mg/3 Ml) 3 ml NEB Q4HRRT PRN PRN Reason: Shortness Of Breath/wheezing Aspirin (Aspirin) 81 mg PO DAILY [facility] Last Admin: 01/23/17 08:34 Dose: 81 mg Bupropion HCl (Wellbutrin Xl) 150 mg PO DAILY [facility] Last Admin: 01/23/17 08:34 Dose: 150 mg Digoxin (Lanoxin) 125 mcg PO DAILY [facility] Last Admin: 01/23/17 08:33 Dose: 125 mcg Diltiazem HCl (Cardizem Cd) 120 mg PO DAILY [facility] Last Admin: 01/23/17 08:33 Dose: 120 mg Piperacillin Sod/Tazobactam (Sod 4.5 gm/ Sodium Chloride) 100 mls @ 100 mls/hr IV Q6H [facility] Last Admin: 01/23/17 08:32 Dose: 100 mls/hr Vancomycin HCl 1,750 mg/ (Sodium Chloride) 500 mls @ 333.333 mls/hr IV Q24H [facility] Insulin Aspart (Novolog) 0 unit SUBCUT ACBED ANTON PRN Reason: Protocol Last Admin: 01/23/17 08:37 Dose: Not Given Admin: 01/23/17 08:36 Dose: 2 units Latanoprost (Xalatan 0.005% [facility]) 0 ml EYEBOTH BEDTIME [facility] Metoprolol Tartrate (Lopressor) 150 mg PO BID [facility] Last Admin: 01/23/17 08:33 Dose: 150 mg Oxybutynin Chloride (Oxybutynin) 2.5 mg PO BEDTIME [facility] Paroxetine HCl (Paxil) 10 mg PO BID [facility] Last Admin: 01/23/17 08:32 Dose: 10 mg Brimonidine 0.1% (Ophth Soln) 0 each EYEBOTH BID [facility] Last Admin: 01/23/17 08:37 Dose: Quetiapine Fumarate (Seroquel) 50 mg PO BEDTIME [facility] Sodium Chloride (Saline Flush) 10 ml FLUSH ASDIRECTED PRN PRN Reason: Keep Vein Open Sodium Chloride (Saline Flush) 2.5 ml FLUSH ASDIRECTED PRN PRN Reason: Keep Vein Open Vancomycin HCl (Pharmacy To Dose - Vancomycin) 0 dose .XX ASDIRECTED [facility] Warfarin Sodium (Coumadin) 5 mg PO DAILY@1400 [facility] Assessment/Plan Comment:: 81 year male admitted for recurrent fall PT consulted for evaluation: He has good strength. They will teach home saftey techniques this afternoon. Cellulitis of lower extremity: on zosyn. anticipate discharge tomorrow. <Devonte Houston - Last Filed: 01/23/17 15:46> H&P History of Present Illness - General Admit Problem/Dx: Admission Diagnosis/Problem Admission Diagnosis/Problem Weakness s/p fall , patient not fully responsive - History of Present Illness Initial Comments - Free Text/Narative: found him on the floor and as per he was "unresponsive"and "did not act like he was all there". Patient f/up with Urologist for BPH and has cronic erythema and ulcerations , with superficial necrosis now on his b/l lower extremities. he used to f/up with wound care Duration of Symptoms: Reports: Minutes: H&P Review of Systems - Review of Systems: Cardiovascular: Reports: edema Skin: Reports: erythema, lesions (necrotic lesions b/l Le ) Exam - Vital Signs Vital Signs: Last Vital Signs Temp 98.7 F 01/23/17 12:00 Pulse 65 01/23/17 12:00 Resp 20 01/23/17 12:00 BP 122/64 01/23/17 12:00 Pulse Ox 94 L 01/23/17 12:00 - Exam Skin: other (right lower extremity: anterior shins: erythematous lesions. NO warmth, NO tenderness. necrotic lesions on b/l le ) - Patient Data Lab Results last 24 hrs: Laboratory Results - last 24 hr 01/23/17 01/23/17 Range/Units 07:59 11:01 POC Glucose 186 H 167 H (60-110) mg/dL Result Diagrams: 01/23/17 01:25 01/23/17 01:25 Kaveh Results last 24 hrs: Microbiology 01/23/17 08:08 Anaerobic Blood Culture - Final Blood - Venous *Q Meaningful Use (ADM) - VTE *Q VTE Criteria *Q: - Stroke *Q Stroke Criteria *Q: - AMI *Q AMI Criteria *Q: - Problem List (1) Fall SNOMED Code(s): 2535232, 056524567 ICD Code: W19.XXXA - UNSPECIFIED FALL, INITIAL ENCOUNTER Status: Acute Current Visit: Yes (2) Cellulitis and abscess of leg SNOMED Code(s): 361900191 ICD Code: L02.419 - CUTANEOUS ABSCESS OF LIMB, UNSPECIFIED; L03.119 - CELLULITIS OF UNSPECIFIED PART OF LIMB Status: Acute Current Visit: No (3) Leg edema SNOMED Code(s): 738907865 ICD Code: R60.0 - LOCALIZED EDEMA Status: Acute Current Visit: Yes (4) Necrotic eschar SNOMED Code(s): 924470213 ICD Code: L98.8 - OTH DISRD OF THE SKIN AND SUBCUTANEOUS TISSUE Status: Acute Current Visit: Yes (5) Depression SNOMED Code(s): 37064437 ICD Code: F32.9 - MAJOR DEPRESSIVE DISORDER, SINGLE EPISODE, UNSPECIFIED Status: Acute Current Visit: Yes (6) Atrial fibrillation SNOMED Code(s): 22715847 ICD Code: I48.91 - UNSPECIFIED ATRIAL FIBRILLATION Status: Acute Current Visit: Yes (7) BPH (benign prostatic hyperplasia) SNOMED Code(s): 461528392, 994273442 ICD Code: N40.0 - BENIGN PROSTATIC HYPERPLASIA WITHOUT LOWER URINRY TRACT SYMP Status: Acute Current Visit: No Problem List Initiated/Reviewed/Updated: Yes Orders Last 24hrs: Active Orders 24 hr Category Date Time Status Patient Status [ADT] Routine ADT 01/23/17 06:15 Active Antiembolic Devices [RC] PER UNIT ROUTINE Care 01/23/17 06:18 Active Neuro Check [RC] Q2HR Care 01/23/17 06:26 Active Oxygen Therapy [RC] PRN Care 01/23/17 06:15 Active Pulse Oximetry [RC] PRN Care 01/23/17 06:17 Active RT Aerosol Therapy [RC] ASDIRECTED Care 01/23/17 06:18 Active Telemetry Monitoring [Cardiac Monitoring] [RC] Q8H Care 01/23/17 06:25 Active Up ad [place] [RC] ASDIRECTED Care 01/23/17 06:15 Active VTE/DVT Education [RC] Q12H Care 01/23/17 06:15 Active Vital Signs [RC] Q4H Care 01/23/17 06:15 Active PT Evaluation and Treatment [CONS] Routine Cons 01/23/17 08:04 Active 2 Gram Sodium Diet [DIET] Diet 01/23/17 Breakfast Active Consistent Carbohydrate Diet [DIET] Diet 01/23/17 Breakfast Active BASIC METABOLIC PANEL,BMP [CHEM] AM Lab 01/24/17 05:11 Ordered BASIC METABOLIC PANEL,BMP [CHEM] AM Lab 01/25/17 05:11 Ordered BASIC METABOLIC PANEL,BMP [CHEM] AM Lab 01/26/17 05:11 Ordered BASIC METABOLIC PANEL,BMP [CHEM] AM Lab 01/27/17 05:11 Ordered BASIC METABOLIC PANEL,BMP [CHEM] AM Lab 01/28/17 05:11 Ordered CBC WITH AUTO DIFF [HEME] AM Lab 01/24/17 05:11 Ordered CBC WITH AUTO DIFF [HEME] AM Lab 01/25/17 05:11 Ordered CBC WITH AUTO DIFF [HEME] AM Lab 01/26/17 05:11 Ordered CBC WITH AUTO DIFF [HEME] AM Lab 01/27/17 05:11 Ordered CULTURE BLOOD [BC] Stat Lab 01/23/17 08:08 Results CULTURE BLOOD [BC] Stat Lab 01/23/17 08:13 Received VANCOMYCIN TROUGH [CHEM] Routine Lab 01/26/17 10:00 Ordered Albuterol/Ipratropium [DuoNeb 3.0-0.5 MG/3 ML] Med 01/23/17 06:15 Active 3 ml NEB Q4HRRT PRN Aspirin Med 01/23/17 09:00 Active 81 mg PO DAILY Digoxin [Lanoxin] Med 01/23/17 09:00 Active 125 mcg PO DAILY Diltiazem [Cardizem CD] Med 01/23/17 09:00 Active 120 mg PO DAILY Insulin Aspart [NovoLOG] Med 01/23/17 06:45 Active See Protocol SUBCUT ACBED Latanoprost [Xalatan 0.005% Ophth Soln] Med 01/23/17 21:00 Active 0 ml EYEBOTH BEDTIME Metoprolol Tartrate [Lopressor] Med 01/23/17 09:00 Active 150 mg PO BID Oxybutynin Med 01/23/17 21:00 Active 2.5 mg PO BEDTIME PARoxetine [Paxil] Med 01/23/17 09:00 Active 10 mg PO BID Patient's Own Medication [Ptom] Med 01/23/17 09:00 Active 0 each EYEBOTH BID Piperacillin/Tazobactam [Piperacil-Tazobact] 4.5 gm Med 01/23/17 08:00 Active Sodium Chloride 0.9% [Normal Saline] 100 ml IV Q6H QUEtiapine [SEROquel] Med 01/23/17 21:00 Active 50 mg PO BEDTIME Sodium Chloride 0.9% [Saline Flush] Med 01/23/17 06:15 Active 10 ml FLUSH ASDIRECTED PRN Sodium Chloride 0.9% [Saline Flush] Med 01/23/17 06:15 Active 2.5 ml FLUSH ASDIRECTED PRN Vancomycin 1,750 mg Med 01/23/17 10:30 Active Sodium Chloride 0.9% [Normal Saline] 500 ml IV Q24H Vancomycin Pharmacy to Dose [Pharmacy to Dose - Med 01/23/17 07:45 Active Vancomycin] See Dose Instructions .XX ASDIRECTED Warfarin [Coumadin] Med 01/23/17 14:00 Active 5 mg PO DAILY@1400 buPROPion [Wellbutrin XL] Med 01/23/17 09:00 Active 150 mg PO DAILY Blood Culture x2 Reflex Set [OM.PC] Stat Oth 01/23/17 07:39 Ordered Peripheral IV Insertion Adult [OM.PC] Routine Oth 01/23/17 06:15 Ordered Resuscitation Status Routine Resus Stat 01/23/17 06:15 Ordered Medication Orders Albuterol/Ipratropium (Duoneb 3.0-0.5 Mg/3 Ml) 3 ml NEB Q4HRRT PRN PRN Reason: Shortness Of Breath/wheezing Aspirin (Aspirin) 81 mg PO DAILY [facility] Last Admin: 01/23/17 08:34 Dose: 81 mg Bupropion HCl (Wellbutrin Xl) 150 mg PO DAILY [facility] Last Admin: 01/23/17 08:34 Dose: 150 mg Digoxin (Lanoxin) 125 mcg PO DAILY [facility] Last Admin: 01/23/17 08:33 Dose: 125 mcg Diltiazem HCl (Cardizem Cd) 120 mg PO DAILY [facility] Last Admin: 01/23/17 08:33 Dose: 120 mg Piperacillin Sod/Tazobactam (Sod 4.5 gm/ Sodium Chloride) 100 mls @ 100 mls/hr IV Q6H [facility] Last Admin: 01/23/17 13:57 Dose: 100 mls/hr Infusion: 01/23/17 09:32 Dose: 100 mls/hr Admin: 01/23/17 08:32 Dose: 100 mls/hr Vancomycin HCl 1,750 mg/ (Sodium Chloride) 500 mls @ 333.333 mls/hr IV Q24H [facility] Last Admin: 01/23/17 11:01 Dose: 333.333 mls/hr Insulin Aspart (Novolog) 0 unit SUBCUT ACBED [place] PRN Reason: Protocol Last Admin: 01/23/17 11:47 Dose: 2 units Admin: 01/23/17 08:37 Dose: Not Given Admin: 01/23/17 08:36 Dose: 2 units Latanoprost (Xalatan 0.005% Ophth Soln) 0 ml EYEBOTH BEDTIME [facility] Metoprolol Tartrate (Lopressor) 150 mg PO BID [facility] Last Admin: 01/23/17 08:33 Dose: 150 mg Oxybutynin Chloride (Oxybutynin) 2.5 mg PO BEDTIME [facility] Paroxetine HCl (Paxil) 10 mg PO BID [facility] Last Admin: 01/23/17 08:32 Dose: 10 mg Brimonidine 0.1% (Ophth Soln) 0 each EYEBOTH BID [facility] Last Admin: 01/23/17 08:37 Dose: Quetiapine Fumarate (Seroquel) 50 mg PO BEDTIME [facility] Sodium Chloride (Saline Flush) 10 ml FLUSH ASDIRECTED PRN PRN Reason: Keep Vein Open Sodium Chloride (Saline Flush) 2.5 ml FLUSH ASDIRECTED PRN PRN Reason: Keep Vein Open Vancomycin HCl (Pharmacy To Dose - Vancomycin) 0 dose .XX ASDIRECTED [facility] Warfarin Sodium (Coumadin) 5 mg PO DAILY@1400 [facility] Last Admin: 01/23/17 13:57 Dose: 5 mg Assessment/Plan Comment:: A/p B/l Le cellulites and superficial ulcerations/ necrotics- start Iv zosyn and vancomycin . wound care consult Bc S/p fall- Pt/ot therapy, neurocheck , q 2 h times 8 h , than q 4 h B/l LE pedal edema - lasix 40 mg iv daily Dvt prof - heparin sq Depression : stable : cont bupropion , paroxetine 10 mg po daily For afib : cont. digoxin , metoprolol, warfarin and aspirin as per reconciliation Dementia- reorientation , B12 level , TSH Inguinal rash , pubic foliculitis: nystatin powder BID , Iv antib
[2017-01-23] MEDS: Warfarin 5 MG Tab PO SCH (13:57)
--- NOTE | 2017-01-23 15:13 | CR ---
EXAM DATE: 01/23/17 PATIENT'S AGE: 81 Patient: ROSELYN MELISSA Facility: [place], [place] Site . Site : 1935 Study: XRay Chest [id number]/8/2017 1:48:04 AM Ordering Physician: Dunia Sun Final Report: INDICATION: SOB/PAIN TECHNIQUE: Chest 1 view COMPARISON: January 21, 2017. FINDINGS: Cardiovascular and mediastinum: Stable cardiac silhouette. Stable 2 lead ICD. Mediastinum is within normal limits. Lungs and pleural space: Scarring along the left lung base. No sign of pleural effusion. No pneumothorax. Bones and soft tissues: Degenerative changes. IMPRESSION: No acute cardiopulmonary disease. Dictated by Ricardo Davenport MD @ 01/23/2017 2:20:10 AM Dictated by: Ricardo Davenport MD @ 01/23/2017 02:20:16 (Electronic Signature) Report Signed by Proxy and Original Signed Document filed in the Medical Record. [facility]
--- NOTE | 2017-01-23 15:14 | CT ---
EXAM DATE: 01/23/17 PATIENT'S AGE: 81 Patient: ROSELYN MELISSA Facility: [place], [place] Site . Site : 1935 Study: CT Head [id number]/8/2017 2:09:36 AM Ordering Physician: Dunia Sun Final Report: INDICATION: pain TECHNIQUE: CT Head without contrast. COMPARISON: 01/03/2017. FINDINGS: There is no sign of intracranial hemorrhage or mass effect. Diffuse cerebral atrophy. Nonspecific low-attenuation along the periventricular white matter, most likely related to chronic microvascular disease. Ventricles and sulci are symmetric and midline. The burnett-white differentiation is preserved. No abnormal intra-axial or extra-axial fluid collection. No acute disease of the visualized paranasal sinuses and mastoid air cells. No fracture evident. No scalp hematoma/ laceration. IMPRESSION: No acute intracranial process. Dictated by: Ricardo Davenport MD @ 01/23/2017 02:41:40 (Electronic Signature) Report Signed by Proxy and Original Signed Document filed in the Medical Record. [facility]
[2017-01-23] MEDS: Furosemide 40 MG/4 ML VIAL IVPUSH SCH (16:28)
[2017-01-23] MEDS: Nystatin Topical Powder 15 GM Bottle TOP SCH ×2 (17:10→21:37)
[2017-01-23] MEDS: Oxybutynin 5 MG Tab PO SCH (21:32)
[2017-01-23] MEDS: QUEtiapine 100 MG Tab PO SCH (21:34)
[2017-01-23] MEDS: Latanoprost 0.005% Ophth Soln 2.5 ML Bottle EYEBOTH SCH (21:36)
[2017-01-24] MEDS: Piperacillin/Tazobactam 4.5 GM in Sodium Chloride 0.9% 100 ML IV SCH ×4 (02:12→19:54)
[2017-01-24] MEDS: Insulin Aspart 100 Units/ML 3 ML Pen SUBCUT SCH ×4 (08:02→20:58)
[2017-01-24] MEDS: Aspirin 81 MG Tab.Chew PO SCH (08:07)
[2017-01-24] MEDS: Digoxin 125 MCG Tab PO SCH (08:07)
[2017-01-24] MEDS: Diltiazem 120 MG Cap.CD PO SCH (08:07)
[2017-01-24] MEDS: buPROPion 150 MG Tab.ER PO SCH (08:07)
[2017-01-24] MEDS: PARoxetine 20 MG Tab PO SCH ×2 (08:08→20:48)
[2017-01-24] MEDS: Metoprolol Tartrate 50 MG Tab PO SCH ×2 (08:09→20:44)
[2017-01-24] MEDS: Furosemide 40 MG/4 ML VIAL IVPUSH SCH (08:09)
[2017-01-24] MEDS: Nystatin Topical Powder 15 GM Bottle TOP SCH ×2 (08:10→20:49)
[2017-01-24] MEDS: OPTH EYEBOTH SCH ×2 (10:08→20:50)
[2017-01-24] MEDS: ALPHAGAN P 0.1% EYEBOTH SCH ×2 (10:08→20:50)
--- NOTE | 2017-01-24 10:10 | PCM.PN ---
<Marina Mauricio - Last Filed: 01/24/17 11:57> - General Info Date of Service: 01/24/17 Functional Status: Reports: tolerating diet, ambulating - Review of Systems General: Reports: no symptoms HEENT: Reports: no symptoms Pulmonary: Reports: no symptoms Cardiovascular: Reports: no symptoms Gastrointestinal: Reports: No symptoms Genitourinary: Reports: no symptoms Musculoskeletal: Reports: no symptoms Skin: Reports: no symptoms Neurological: Reports: no symptoms Psychiatric: Reports: no symptoms - Patient Data Vitals - most recent: Last Vital Signs Temp 97.7 F 01/24/17 08:00 Pulse 72 01/24/17 08:09 Resp 20 01/24/17 08:00 BP 147/69 H 01/24/17 08:09 Pulse Ox 94 L 01/24/17 08:00 Weight - most recent: 255 lb 4.725 oz I&O - last 24 hours: Intake & Output 01/23/17 01/24/17 01/24/17 22:59 06:59 14:59 Intake Total 940 940 Output Total 350 650 Balance 590 290 Lab Results last 24 hrs: Laboratory Results - last 24 hr 01/23/17 01/23/17 01/23/17 Range/Units 11:01 15:53 16:49 WBC (4.0-11.0) K/uL RBC (4.50-5.90) M/uL Hgb (13.0-17.0) g/dL Hct (38.0-50.0) % MCV (80.0-98.0) fL MCH (27.0-32.0) pg MCHC (31.0-37.0) g/dL RDW Std Deviation (28.0-62.0) fl RDW Coeff of Yancy (11.0-15.0) % Plt Count (150-400) K/uL MPV (7.40-12.00) fL Neut % (Auto) (48.0-80.0) % Lymph % (Auto) (16.0-40.0) % [place] % (Auto) (0.0-15.0) % Eos % (Auto) (0.0-7.0) % Baso % (Auto) (0.0-1.5) % Neut # (1.4-5.7) K/uL Lymph # (0.6-2.4) K/uL [place] # (0.0-0.8) K/uL Eos # (0.0-0.7) K/uL Baso # (0.0-0.1) K/uL Nucleated RBC % /100WBC Nucleated RBCs # K/uL Sodium (136-146) mmol/L Potassium (3.5-5.1) mmol/L Chloride (98-110) mmol/L Carbon Dioxide (21-31) mmol/L BUN (6.0-23.0) mg/dL Creatinine (0.6-1.5) mg/dL Est Cr Clr Drug Dosing mL/min Estimated GFR (MDRD) ml/min Glucose (60-110) mg/dL POC Glucose 167 H 169 H (60-110) mg/dL Calcium (8.8-10.8) mg/dL B-Natriuretic Peptide 74 (<100) PG/ML 01/23/17 01/24/17 01/24/17 Range/Units 21:03 05:15 05:15 WBC 6.58 (4.0-11.0) K/uL RBC 4.24 L (4.50-5.90) M/uL Hgb 13.0 (13.0-17.0) g/dL Hct 40.1 (38.0-50.0) % MCV 94.6 (80.0-98.0) fL MCH 30.7 (27.0-32.0) pg MCHC 32.4 (31.0-37.0) g/dL RDW Std Deviation 48.2 (28.0-62.0) fl RDW Coeff of Yancy 14 (11.0-15.0) % Plt Count 217 (150-400) K/uL MPV 9.90 (7.40-12.00) fL Neut % (Auto) 59.5 (48.0-80.0) % Lymph % (Auto) 28.9 (16.0-40.0) % [place] % (Auto) 7.8 (0.0-15.0) % Eos % (Auto) 3.2 (0.0-7.0) % Baso % (Auto) 0.6 (0.0-1.5) % Neut # 3.9 (1.4-5.7) K/uL Lymph # 1.9 (0.6-2.4) K/uL [place] # 0.5 (0.0-0.8) K/uL Eos # 0.2 (0.0-0.7) K/uL Baso # 0.0 (0.0-0.1) K/uL Nucleated RBC % 0.0 /100WBC Nucleated RBCs # 0 K/uL Sodium 142 (136-146) mmol/L Potassium 4.1 (3.5-5.1) mmol/L Chloride 104 (98-110) mmol/L Carbon Dioxide 29 (21-31) mmol/L BUN 14 (6.0-23.0) mg/dL Creatinine 1.2 (0.6-1.5) mg/dL Est Cr Clr Drug Dosing 51.54 mL/min Estimated GFR (MDRD) 58.4 ml/min Glucose 173 H (60-110) mg/dL POC Glucose 147 H (60-110) mg/dL Calcium 8.4 L (8.8-10.8) mg/dL B-Natriuretic Peptide (<100) PG/ML 01/24/17 Range/Units 07:01 WBC (4.0-11.0) K/uL RBC (4.50-5.90) M/uL Hgb (13.0-17.0) g/dL Hct (38.0-50.0) % MCV (80.0-98.0) fL MCH (27.0-32.0) pg MCHC (31.0-37.0) g/dL RDW Std Deviation (28.0-62.0) fl RDW Coeff of Yancy (11.0-15.0) % Plt Count (150-400) K/uL MPV (7.40-12.00) fL Neut % (Auto) (48.0-80.0) % Lymph % (Auto) (16.0-40.0) % [place] % (Auto) (0.0-15.0) % Eos % (Auto) (0.0-7.0) % Baso % (Auto) (0.0-1.5) % Neut # (1.4-5.7) K/uL Lymph # (0.6-2.4) K/uL [place] # (0.0-0.8) K/uL Eos # (0.0-0.7) K/uL Baso # (0.0-0.1) K/uL Nucleated RBC % /100WBC Nucleated RBCs # K/uL Sodium (136-146) mmol/L Potassium (3.5-5.1) mmol/L Chloride (98-110) mmol/L Carbon Dioxide (21-31) mmol/L BUN (6.0-23.0) mg/dL Creatinine (0.6-1.5) mg/dL Est Cr Clr Drug Dosing mL/min Estimated GFR (MDRD) ml/min Glucose (60-110) mg/dL POC Glucose 199 H (60-110) mg/dL Calcium (8.8-10.8) mg/dL B-Natriuretic Peptide (<100) PG/ML Kaveh Results last 24 hrs: Microbiology 01/23/17 08:13 Aerobic Blood Culture - Preliminary Blood - Venous - Lab Draw Anaerobic Blood Culture - Preliminary NO GROWTH AFTER 1 DAY 01/23/17 08:08 Aerobic Blood Culture - Preliminary Blood - Venous NO GROWTH AFTER 1 DAY Anaerobic Blood Culture - Final Med Orders - Current: Current Medications Albuterol/Ipratropium (Duoneb 3.0-0.5 Mg/3 Ml) 3 ml NEB Q4HRRT PRN PRN Reason: Shortness Of Breath/wheezing Aspirin (Aspirin) 81 mg PO DAILY [facility] Last Admin: 01/24/17 08:07 Dose: 81 mg Bupropion HCl (Wellbutrin Xl) 150 mg PO DAILY [facility] Last Admin: 01/24/17 08:07 Dose: 150 mg Digoxin (Lanoxin) 125 mcg PO DAILY [facility] Last Admin: 01/24/17 08:07 Dose: 125 mcg Diltiazem HCl (Cardizem Cd) 120 mg PO DAILY [facility] Last Admin: 01/24/17 08:07 Dose: 120 mg Furosemide (Lasix) 40 mg IVPUSH DAILY [facility] Last Admin: 01/24/17 08:09 Dose: 40 mg Piperacillin Sod/Tazobactam (Sod 4.5 gm/ Sodium Chloride) 100 mls @ 100 mls/hr IV Q6H [facility] Last Admin: 01/24/17 08:09 Dose: 100 mls/hr Vancomycin HCl 1,750 mg/ (Sodium Chloride) 500 mls @ 333.333 mls/hr IV Q24H [facility] Last Admin: 01/23/17 11:01 Dose: 333.333 mls/hr Insulin Aspart (Novolog) 0 unit SUBCUT ACBED [facility] PRN Reason: Protocol Last Admin: 01/24/17 08:02 Dose: 2 units Latanoprost (Xalatan 0.005% Ophth Soln) 0 ml EYEBOTH BEDTIME [facility] Last Admin: 01/23/17 21:36 Dose: 1 drop Metoprolol Tartrate (Lopressor) 150 mg PO BID [facility] Last Admin: 01/24/17 08:09 Dose: 150 mg Nystatin (Nystop) 1 gm TOP BID [facility] Last Admin: 01/24/17 08:10 Dose: 1 applic Oxybutynin Chloride (Oxybutynin) 2.5 mg PO BEDTIME [facility] Last Admin: 01/23/17 21:32 Dose: 2.5 mg Paroxetine HCl (Paxil) 10 mg PO BID [facility] Last Admin: 01/24/17 08:08 Dose: 10 mg Brimonidine 0.1% (Ophth Soln) 0 each EYEBOTH BID [facility] Last Admin: 01/24/17 10:08 Dose: Not Given Quetiapine Fumarate (Seroquel) 50 mg PO BEDTIME [facility] Last Admin: 01/23/17 21:34 Dose: 50 mg Sodium Chloride (Saline Flush) 10 ml FLUSH ASDIRECTED PRN PRN Reason: Keep Vein Open Sodium Chloride (Saline Flush) 2.5 ml FLUSH ASDIRECTED PRN PRN Reason: Keep Vein Open Vancomycin HCl (Pharmacy To Dose - Vancomycin) 0 dose .XX ASDIRECTED [facility] Warfarin Sodium (Coumadin) 5 mg PO DAILY@1400 [facility] Last Admin: 01/23/17 13:57 Dose: 5 mg Discontinued Medications Vancomycin HCl 1,750 mg/ (Sodium Chloride) 500 mls @ 333.333 mls/hr IV Q24H [facility] Last Admin: 01/23/17 11:54 Dose: Not Given - Exam General: alert, oriented, cooperative HEENT: Pupils equal, EOMI Neck: supple, trachea midline Lungs: Clear to auscultation, Normal respiratory effort Cardiovascular: regular rate, regular rhythm Abdomen: bowel sounds present, soft Back Exam: normal inspection, full range of motion Extremities: no edema Skin: warm, dry, intact Neurological: no new focal deficit Psy/Mental Status: alert, normal affect, normal mood - Problem List Review Problem List Initiated/Reviewed/Updated: Yes - Plan Plan:: A/p Blood cultures: GM stain: 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 await sensitivities. CONTACT PRECAUTIONS. Admit to inpatient. B/l Le cellulites and superficial ulcerations/ necrotics- start Iv zosyn and vancomycin . wound care consult S/p fall- Pt/ot therapy, neurocheck , q 2 h times 8 h , than q 4 h B/l LE pedal edema - lasix 40 mg iv daily Dvt prof - heparin sq Depression : stable : cont bupropion , paroxetine 10 mg po daily For afib : cont. digoxin , metoprolol, warfarin and aspirin as per reconciliation Dementia- reorientation , B12 level , TSH Inguinal rash , pubic foliculitis: nystatin powder BID , Iv antib <[email or web address] - Last Filed: 01/24/17 17:53> - Patient Data Vitals - most recent: Last Vital Signs Temp 97.2 F 01/24/17 15:52 Pulse 71 01/24/17 15:52 Resp 20 01/24/17 15:52 BP 138/72 01/24/17 15:52 Pulse Ox 95 01/24/17 15:52 I&O - last 24 hours: Intake & Output 01/24/17 01/24/17 01/24/17 06:59 14:59 22:59 Intake Total 100 Balance 100 Lab Results last 24 hrs: Laboratory Results - last 24 hr 01/24/17 01/24/17 Range/Units 13:34 16:35 INR 2.54 H (0.86-1.11) POC Glucose 152 H (60-110) mg/dL Med Orders - Current: Current Medications Albuterol/Ipratropium (Duoneb 3.0-0.5 Mg/3 Ml) 3 ml NEB Q4HRRT PRN PRN Reason: Shortness Of Breath/wheezing Aspirin (Aspirin) 81 mg PO DAILY [facility] Last Admin: 01/24/17 08:07 Dose: 81 mg Bupropion HCl (Wellbutrin Xl) 150 mg PO DAILY [facility] Last Admin: 01/24/17 08:07 Dose: 150 mg Digoxin (Lanoxin) 125 mcg PO DAILY [facility] Last Admin: 01/24/17 08:07 Dose: 125 mcg Diltiazem HCl (Cardizem Cd) 120 mg PO DAILY [facility] Last Admin: 01/24/17 08:07 Dose: 120 mg Furosemide (Lasix) 40 mg IVPUSH DAILY [facility] Last Admin: 01/24/17 08:09 Dose: 40 mg Piperacillin Sod/Tazobactam (Sod 4.5 gm/ Sodium Chloride) 100 mls @ 100 mls/hr IV Q6H [facility] Last Admin: 01/24/17 13:11 Dose: 100 mls/hr Vancomycin HCl 1,750 mg/ (Sodium Chloride) 500 mls @ 333.333 mls/hr IV Q24H [facility] Last Admin: 01/24/17 10:09 Dose: 333.333 mls/hr Insulin Aspart (Novolog) 0 unit SUBCUT ACBED [facility] PRN Reason: Protocol Last Admin: 01/24/17 16:38 Dose: 2 units Latanoprost (Xalatan 0.005% Ophth Soln) 0 ml EYEBOTH BEDTIME [facility] Last Admin: 01/23/17 21:36 Dose: 1 drop Metoprolol Tartrate (Lopressor) 150 mg PO BID [facility] Last Admin: 01/24/17 08:09 Dose: 150 mg Nystatin (Nystop) 1 gm TOP BID [facility] Last Admin: 01/24/17 08:10 Dose: 1 applic Oxybutynin Chloride (Oxybutynin) 2.5 mg PO BEDTIME [facility] Last Admin: 01/23/17 21:32 Dose: 2.5 mg Paroxetine HCl (Paxil) 10 mg PO BID [facility] Last Admin: 01/24/17 08:08 Dose: 10 mg Brimonidine 0.1% (Ophth Soln) 0 each EYEBOTH BID [facility] Last Admin: 01/24/17 10:08 Dose: Not Given Quetiapine Fumarate (Seroquel) 50 mg PO BEDTIME [facility] Last Admin: 01/23/17 21:34 Dose: 50 mg Sodium Chloride (Saline Flush) 10 ml FLUSH ASDIRECTED PRN PRN Reason: Keep Vein Open Sodium Chloride (Saline Flush) 2.5 ml FLUSH ASDIRECTED PRN PRN Reason: Keep Vein Open Vancomycin HCl (Pharmacy To Dose - Vancomycin) 0 dose .XX ASDIRECTED [facility] Warfarin Sodium (Coumadin) 5 mg PO DAILY@1400 [facility] Last Admin: 01/24/17 14:46 Dose: 5 mg Discontinued Medications Vancomycin HCl 1,750 mg/ (Sodium Chloride) 500 mls @ 333.333 mls/hr IV Q24H [facility] Last Admin: 01/23/17 11:54 Dose: Not Given - Problem List & Annotations (1) Fall SNOMED Code(s): 1915300, 926756135 Code(s): W19.XXXA - UNSPECIFIED FALL, INITIAL ENCOUNTER Status: Acute Current Visit: Yes (2) Cellulitis and abscess of leg SNOMED Code(s): 051310639 Code(s): L02.419 - CUTANEOUS ABSCESS OF LIMB, UNSPECIFIED; L03.119 - CELLULITIS OF UNSPECIFIED PART OF LIMB Status: Acute Current Visit: No (3) Leg edema SNOMED Code(s): 297422791 Code(s): R60.0 - LOCALIZED EDEMA Status: Acute Current Visit: Yes (4) Necrotic eschar SNOMED Code(s): 506078940 Code(s): L98.8 - OTH DISRD OF THE SKIN AND SUBCUTANEOUS TISSUE Status: Acute Current Visit: Yes (5) Depression SNOMED Code(s): 26353854 Code(s): F32.9 - MAJOR DEPRESSIVE DISORDER, SINGLE EPISODE, UNSPECIFIED Status: Acute Current Visit: Yes (6) Atrial fibrillation SNOMED Code(s): 11647326 Code(s): I48.91 - UNSPECIFIED ATRIAL FIBRILLATION Status: Acute Current Visit: Yes (7) BPH (benign prostatic hyperplasia) SNOMED Code(s): 251448984, 930158585 Code(s): N40.0 - BENIGN PROSTATIC HYPERPLASIA WITHOUT LOWER URINRY TRACT SYMP Status: Acute Current Visit: No - My Orders Last 24 Hours: My Active Orders 01/24/17 17:50 Isolation [COMM] Routine - Plan Plan:: D/c neurocheck d/c lasix ams and confusion periods can be due secondary to his bacteriemia. Patient seen and examined and dw resident. agree with assessment and plan
[2017-01-24] MEDS: Warfarin 5 MG Tab PO SCH (14:46)
[2017-01-24] MEDS: Oxybutynin 5 MG Tab PO SCH (20:45)
[2017-01-24] MEDS: QUEtiapine 100 MG Tab PO SCH (20:47)
[2017-01-24] MEDS: Latanoprost 0.005% Ophth Soln 2.5 ML Bottle EYEBOTH SCH (20:50)
[2017-01-24] MEDS ORDERED: Tamsulosin 0.4 MG Cap.ER PO SCH (21:00)
[2017-01-25] MEDS: Piperacillin/Tazobactam 4.5 GM in Sodium Chloride 0.9% 100 ML IV SCH ×2 (01:14→08:41)
[2017-01-25 05:41] LABS: CHLORIDE,CL 108 mmol/L (98-110); SODIUM,NA 141 mmol/L (136-146)
[2017-01-25] MEDS: Insulin Aspart 100 Units/ML 3 ML Pen SUBCUT SCH ×2 (07:06→12:13)
--- NOTE | 2017-01-25 08:10 | PCM.PN ---
- General Info Date of Service: 01/25/17 Functional Status: Reports: pain controlled, tolerating diet - Review of Systems General: Reports: No Symptoms HEENT: Reports: no symptoms Pulmonary: Reports: no symptoms Cardiovascular: Reports: No Symptoms Gastrointestinal: Reports: No symptoms Genitourinary: Reports: no symptoms Musculoskeletal: Reports: no symptoms Skin: Reports: no symptoms Neurological: Reports: No Symptoms Psychiatric: Reports: no symptoms - Patient Data Vitals - most recent: Last Vital Signs Temp 97.9 F 01/25/17 04:00 Pulse 71 01/25/17 04:00 Resp 18 01/25/17 04:00 BP 111/63 01/25/17 04:00 Pulse Ox 93 L 01/25/17 06:00 Weight - most recent: 115.8 kg I&O - last 24 hours: Intake & Output 01/24/17 01/25/17 01/25/17 22:59 06:59 14:59 Intake Total 100 670 Output Total 300 Balance 100 370 Lab Results last 24 hrs: Laboratory Results - last 24 hr 01/24/17 01/24/17 01/24/17 Range/Units 13:34 16:35 20:53 WBC (4.0-11.0) K/uL RBC (4.50-5.90) M/uL Hgb (13.0-17.0) g/dL Hct (38.0-50.0) % MCV (80.0-98.0) fL MCH (27.0-32.0) pg MCHC (31.0-37.0) g/dL RDW Std Deviation (28.0-62.0) fl RDW Coeff of Yancy (11.0-15.0) % Plt Count (150-400) K/uL MPV (7.40-12.00) fL Neut % (Auto) (48.0-80.0) % Lymph % (Auto) (16.0-40.0) % [place] % (Auto) (0.0-15.0) % Eos % (Auto) (0.0-7.0) % Baso % (Auto) (0.0-1.5) % Neut # (1.4-5.7) K/uL Lymph # (0.6-2.4) K/uL [place] # (0.0-0.8) K/uL Eos # (0.0-0.7) K/uL Baso # (0.0-0.1) K/uL Nucleated RBC % /100WBC Nucleated RBCs # K/uL INR 2.54 H (0.86-1.11) Sodium (136-146) mmol/L Potassium (3.5-5.1) mmol/L Chloride (98-110) mmol/L Carbon Dioxide (21-31) mmol/L BUN (6.0-23.0) mg/dL Creatinine (0.6-1.5) mg/dL Est Cr Clr Drug Dosing mL/min Estimated GFR (MDRD) ml/min Glucose (60-110) mg/dL POC Glucose 152 H 150 H (60-110) mg/dL Calcium (8.8-10.8) mg/dL 01/25/17 01/25/17 01/25/17 Range/Units 05:10 05:10 05:10 WBC 6.40 (4.0-11.0) K/uL RBC 4.24 L (4.50-5.90) M/uL Hgb 13.0 (13.0-17.0) g/dL Hct 40.2 (38.0-50.0) % MCV 94.8 (80.0-98.0) fL MCH 30.7 (27.0-32.0) pg MCHC 32.3 (31.0-37.0) g/dL RDW Std Deviation 49.0 (28.0-62.0) fl RDW Coeff of Yancy 14 (11.0-15.0) % Plt Count 218 (150-400) K/uL MPV 9.90 (7.40-12.00) fL Neut % (Auto) 57.5 (48.0-80.0) % Lymph % (Auto) 28.6 (16.0-40.0) % [place] % (Auto) 9.4 (0.0-15.0) % Eos % (Auto) 3.6 (0.0-7.0) % Baso % (Auto) 0.9 (0.0-1.5) % Neut # 3.7 (1.4-5.7) K/uL Lymph # 1.8 (0.6-2.4) K/uL [place] # 0.6 (0.0-0.8) K/uL Eos # 0.2 (0.0-0.7) K/uL Baso # 0.1 (0.0-0.1) K/uL Nucleated RBC % 0.0 /100WBC Nucleated RBCs # 0 K/uL INR 2.55 H (0.86-1.11) Sodium 141 (136-146) mmol/L Potassium 4.0 (3.5-5.1) mmol/L Chloride 108 (98-110) mmol/L Carbon Dioxide 21 (21-31) mmol/L BUN 13 (6.0-23.0) mg/dL Creatinine 1.1 (0.6-1.5) mg/dL Est Cr Clr Drug Dosing 56.22 mL/min Estimated GFR (MDRD) > 60.0 ml/min Glucose 180 H (60-110) mg/dL POC Glucose (60-110) mg/dL Calcium 8.0 L (8.8-10.8) mg/dL 01/25/17 Range/Units 06:08 WBC (4.0-11.0) K/uL RBC (4.50-5.90) M/uL Hgb (13.0-17.0) g/dL Hct (38.0-50.0) % MCV (80.0-98.0) fL MCH (27.0-32.0) pg MCHC (31.0-37.0) g/dL RDW Std Deviation (28.0-62.0) fl RDW Coeff of Yancy (11.0-15.0) % Plt Count (150-400) K/uL MPV (7.40-12.00) fL Neut % (Auto) (48.0-80.0) % Lymph % (Auto) (16.0-40.0) % [place] % (Auto) (0.0-15.0) % Eos % (Auto) (0.0-7.0) % Baso % (Auto) (0.0-1.5) % Neut # (1.4-5.7) K/uL Lymph # (0.6-2.4) K/uL [place] # (0.0-0.8) K/uL Eos # (0.0-0.7) K/uL Baso # (0.0-0.1) K/uL Nucleated RBC % /100WBC Nucleated RBCs # K/uL INR (0.86-1.11) Sodium (136-146) mmol/L Potassium (3.5-5.1) mmol/L Chloride (98-110) mmol/L Carbon Dioxide (21-31) mmol/L BUN (6.0-23.0) mg/dL Creatinine (0.6-1.5) mg/dL Est Cr Clr Drug Dosing mL/min Estimated GFR (MDRD) ml/min Glucose (60-110) mg/dL POC Glucose 161 H (60-110) mg/dL Calcium (8.8-10.8) mg/dL Med Orders - Current: Current Medications Albuterol/Ipratropium (Duoneb 3.0-0.5 Mg/3 Ml) 3 ml NEB Q4HRRT PRN PRN Reason: Shortness Of Breath/wheezing Aspirin (Aspirin) 81 mg PO DAILY [facility] Last Admin: 01/24/17 08:07 Dose: 81 mg Bupropion HCl (Wellbutrin Xl) 150 mg PO DAILY [facility] Last Admin: 01/24/17 08:07 Dose: 150 mg Digoxin (Lanoxin) 125 mcg PO DAILY [facility] Last Admin: 01/24/17 08:07 Dose: 125 mcg Diltiazem HCl (Cardizem Cd) 120 mg PO DAILY [facility] Last Admin: 01/24/17 08:07 Dose: 120 mg Piperacillin Sod/Tazobactam (Sod 4.5 gm/ Sodium Chloride) 100 mls @ 100 mls/hr IV Q6H [facility] Last Admin: 01/25/17 01:14 Dose: 100 mls/hr Vancomycin HCl 1,750 mg/ (Sodium Chloride) 500 mls @ 333.333 mls/hr IV Q24H [facility] Last Admin: 01/24/17 10:09 Dose: 333.333 mls/hr Insulin Aspart (Novolog) 0 unit SUBCUT ACBED [facility] PRN Reason: Protocol Last Admin: 01/25/17 07:06 Dose: 2 units Latanoprost (Xalatan 0.005% Ophth Soln) 0 ml EYEBOTH BEDTIME [facility] Last Admin: 01/24/17 20:50 Dose: 1 drop Metoprolol Tartrate (Lopressor) 150 mg PO BID [facility] Last Admin: 01/24/17 20:44 Dose: 150 mg Nystatin (Nystop) 1 gm TOP BID [facility] Last Admin: 01/24/17 20:49 Dose: 1 applic Oxybutynin Chloride (Oxybutynin) 2.5 mg PO BEDTIME [facility] Last Admin: 01/24/17 20:45 Dose: 2.5 mg Paroxetine HCl (Paxil) 10 mg PO BID [facility] Last Admin: 01/24/17 20:48 Dose: 10 mg Alphagan P 0.1% Opth (SolutionOwn Med) 0 each EYEBOTH BID [facility] Last Admin: 01/24/17 20:50 Dose: 1 each Quetiapine Fumarate (Seroquel) 50 mg PO BEDTIME [facility] Last Admin: 01/24/17 20:47 Dose: 50 mg Sodium Chloride (Saline Flush) 10 ml FLUSH ASDIRECTED PRN PRN Reason: Keep Vein Open Sodium Chloride (Saline Flush) 2.5 ml FLUSH ASDIRECTED PRN PRN Reason: Keep Vein Open Tamsulosin HCl (Flomax) 0.4 mg PO BEDTIME [facility] Last Admin: 01/24/17 20:48 Dose: 0.4 mg Vancomycin HCl (Pharmacy To Dose - Vancomycin) 0 dose .XX ASDIRECTED [facility] Warfarin Sodium (Coumadin) 5 mg PO DAILY@1400 [facility] Last Admin: 01/24/17 14:46 Dose: 5 mg Discontinued Medications Furosemide (Lasix) 40 mg IVPUSH DAILY [facility] Last Admin: 01/24/17 08:09 Dose: 40 mg Vancomycin HCl 1,750 mg/ (Sodium Chloride) 500 mls @ 333.333 mls/hr IV Q24H [facility] Last Admin: 01/23/17 11:54 Dose: Not Given - Exam General: alert, oriented HEENT: Pupils equal, Pupils reactive Neck: supple, trachea midline Lungs: Clear to auscultation, Normal respiratory effort Cardiovascular: Regular Rate, Regular Rhythm Abdomen: bowel sounds present, soft Back Exam: normal inspection, full range of motion Extremities: no edema Skin: warm, dry, other (bilateral lower extremity cellulities improving) Neurological: no new focal deficit Psy/Mental Status: alert, normal affect, normal mood - Problem List Review Problem List Initiated/Reviewed/Updated: Yes - My Orders Last 24 Hours: My Active Orders 01/24/17 11:58 Communication Order [RC] ROUTINE 01/26/17 05:11 INR,PT,PROTHROMBIN TIME [COAG] AM 01/27/17 05:11 INR,PT,PROTHROMBIN TIME [COAG] AM - Plan Plan:: D/c neurocheck d/c lasix ams and confusion periods can be due secondary to his bacteriemia. Patient seen and examined and dw resident. agree with assessment and plan
[2017-01-25] MEDS: Aspirin 81 MG Tab.Chew PO SCH (09:32)
[2017-01-25] MEDS: Diltiazem 120 MG Cap.CD PO SCH (09:33)
[2017-01-25] MEDS: Digoxin 125 MCG Tab PO SCH (09:38)
[2017-01-25] MEDS: Metoprolol Tartrate 50 MG Tab PO SCH (09:39)
[2017-01-25] MEDS: Nystatin Topical Powder 15 GM Bottle TOP SCH (09:41)
[2017-01-25] MEDS: PARoxetine 20 MG Tab PO SCH (09:42)
[2017-01-25] MEDS: ALPHAGAN P 0.1% EYEBOTH SCH (09:42)
[2017-01-25] MEDS: OPTH EYEBOTH SCH (09:42)
[2017-01-25] MEDS: buPROPion 150 MG Tab.ER PO SCH (09:43)
--- NOTE | 2017-01-25 11:02 | PCM.DCSUM1 ---
<Marina Mauricio - Last Filed: 01/25/17 10:54> Discharge Summary - Hospital Course Free Text/Narrative:: 81 yo male admitted for recurrent falls at home. His Head CT, CXR and UA negative. His vital signs stable. CBC and BMP are unremarkable. PT was consulted where he was able to ambulate without assistance and has good strength. During hospitilizaton he was noted to have increased erythema of the lower extremeitis. Zosyn and vancomycin started. Blood culture was positive for 1/4 bottles of GM + where most likely contaminant. Upon discussion with the patient and family for possible sandee home vs discharged home. Patient requested to go home with resuming home health. He is discharged with keflex for 7 days for cellulitis and resume home health care with PT for strengthening and ambulation, resuming wound care along with OT for home assessment. - Discharge Data Discharge Date: 01/25/17 Discharge Disposition: Home, W Home Health Agency 06 Condition: Fair - Patient Instructions Diet: Heart Healthy Diet Activity: As Tolerated Driving: Do Not Drive Showering/Bathing: May Shower Wound/Incision Care: Keep Operative Site/Wound Site Clean and Dry Notify Provider of: Fever, Increased Pain, Swelling and Redness, Drainage, Nausea and/or Vomiting - Discharge Plan Prescriptions/Med Rec: Cephalexin [Keflex] 500 mg PO Q6HR #28 cap Nystatin [Nystop] 1 gm TOP BID #90 bottle Home Medications: Home Meds Albuterol Sulfate [Albuterol Sulfate HFA] 2 inh IH Q6HR PRN 04/19/14 [History] Brimonidine Tartrate [Alphagan P 0.1% Ophth Soln] 1 drop EYEBOTH BID 04/19/14 [ History] Latanoprost [Xalatan 0.005% Ophth Soln] 1 drop EYEBOTH BEDTIME 04/19/14 [History ] PARoxetine HCl [Paroxetine HCl] 10 mg PO BID 04/19/14 [History] atorvaSTATin Calcium [Atorvastatin Calcium] 20 mg PO BEDTIME 04/19/14 [History] Aspirin [Adan Chewable Aspirin] 81 mg PO DAILY #30 tab.chew 04/28/14 [Rx] Digoxin [Lanoxin] 125 mcg PO DAILY #30 tab 04/28/14 [Rx] Oxybutynin 2.5 mg PO BEDTIME 08/11/16 [History] Diltiazem [Cardizem CD] 120 mg PO DAILY 01/03/17 [History] Furosemide [Lasix] 20 mg PO DAILY 01/03/17 [History] buPROPion [buPROPion XL] 150 mg PO DAILY 01/04/17 [History] metFORMIN HCl [Metformin HCl] 1,000 mg PO BIDMEALS 01/04/17 [History] Metoprolol Tartrate [Lopressor] 150 mg PO BID #180 tablet 01/07/17 [Rx] QUEtiapine [SEROquel] 50 mg PO BEDTIME 01/23/17 [History] Warfarin [Coumadin] 5 mg PO BEDTIME 01/23/17 [History] Tamsulosin [Flomax] 0.4 mg PO BEDTIME 01/24/17 [History] Cephalexin [Keflex] 500 mg PO Q6HR #28 cap 01/25/17 [Rx] Nystatin [Nystop] 1 gm TOP BID #90 bottle 01/25/17 [Rx] Patient Handouts: Fall Prevention in the Home, [id number], Nystatin topical powder, Cellulitis, Adult, [id number], Cephalexin tablets or capsules, Atrial Fibrillation, [id number] Forms: ED Department Discharge Referrals: Manohar Marshall MD [Primary Care Provider] - 02/04/17 3:45 pm - General Info Date of Service: 01/25/17 Functional Status: Reports: tolerating diet, ambulating, urinating - Review of Systems General: Reports: no symptoms HEENT: Reports: no symptoms Pulmonary: Reports: no symptoms Cardiovascular: Reports: no symptoms Gastrointestinal: Reports: No symptoms Genitourinary: Reports: no symptoms Musculoskeletal: Reports: no symptoms Skin: Reports: no symptoms Neurological: Reports: no symptoms Psychiatric: Reports: no symptoms - Patient Data Vitals - Most Recent: Last Vital Signs Temp 97.3 F 01/25/17 08:00 Pulse 69 01/25/17 09:39 Resp 16 01/25/17 08:00 BP 130/60 01/25/17 09:39 Pulse Ox 94 L 01/25/17 08:00 Weight - Most Recent: 115.8 kg I&O - Last 24 hours: Intake & Output 01/24/17 01/25/17 01/25/17 22:59 06:59 14:59 Intake Total 100 670 Output Total 300 Balance 100 370 Lab Results - Last 24 hrs: Laboratory Results - last 24 hr 01/24/17 01/24/17 01/24/17 Range/Units 13:34 16:35 20:53 WBC (4.0-11.0) K/uL RBC (4.50-5.90) M/uL Hgb (13.0-17.0) g/dL Hct (38.0-50.0) % MCV (80.0-98.0) fL MCH (27.0-32.0) pg MCHC (31.0-37.0) g/dL RDW Std Deviation (28.0-62.0) fl RDW Coeff of Yancy (11.0-15.0) % Plt Count (150-400) K/uL MPV (7.40-12.00) fL Neut % (Auto) (48.0-80.0) % Lymph % (Auto) (16.0-40.0) % Nuckolls % (Auto) (0.0-15.0) % Eos % (Auto) (0.0-7.0) % Baso % (Auto) (0.0-1.5) % Neut # (1.4-5.7) K/uL Lymph # (0.6-2.4) K/uL Nuckolls # (0.0-0.8) K/uL Eos # (0.0-0.7) K/uL Baso # (0.0-0.1) K/uL Nucleated RBC % /100WBC Nucleated RBCs # K/uL INR 2.54 H (0.86-1.11) Sodium (136-146) mmol/L Potassium (3.5-5.1) mmol/L Chloride (98-110) mmol/L Carbon Dioxide (21-31) mmol/L BUN (6.0-23.0) mg/dL Creatinine (0.6-1.5) mg/dL Est Cr Clr Drug Dosing mL/min Estimated GFR (MDRD) ml/min Glucose (60-110) mg/dL POC Glucose 152 H 150 H (60-110) mg/dL Calcium (8.8-10.8) mg/dL 01/25/17 01/25/17 01/25/17 Range/Units 05:10 05:10 05:10 WBC 6.40 (4.0-11.0) K/uL RBC 4.24 L (4.50-5.90) M/uL Hgb 13.0 (13.0-17.0) g/dL Hct 40.2 (38.0-50.0) % MCV 94.8 (80.0-98.0) fL MCH 30.7 (27.0-32.0) pg MCHC 32.3 (31.0-37.0) g/dL RDW Std Deviation 49.0 (28.0-62.0) fl RDW Coeff of Yancy 14 (11.0-15.0) % Plt Count 218 (150-400) K/uL MPV 9.90 (7.40-12.00) fL Neut % (Auto) 57.5 (48.0-80.0) % Lymph % (Auto) 28.6 (16.0-40.0) % Nuckolls % (Auto) 9.4 (0.0-15.0) % Eos % (Auto) 3.6 (0.0-7.0) % Baso % (Auto) 0.9 (0.0-1.5) % Neut # 3.7 (1.4-5.7) K/uL Lymph # 1.8 (0.6-2.4) K/uL Nuckolls # 0.6 (0.0-0.8) K/uL Eos # 0.2 (0.0-0.7) K/uL Baso # 0.1 (0.0-0.1) K/uL Nucleated RBC % 0.0 /100WBC Nucleated RBCs # 0 K/uL INR 2.55 H (0.86-1.11) Sodium 141 (136-146) mmol/L Potassium 4.0 (3.5-5.1) mmol/L Chloride 108 (98-110) mmol/L Carbon Dioxide 21 (21-31) mmol/L BUN 13 (6.0-23.0) mg/dL Creatinine 1.1 (0.6-1.5) mg/dL Est Cr Clr Drug Dosing 56.22 mL/min Estimated GFR (MDRD) > 60.0 ml/min Glucose 180 H (60-110) mg/dL POC Glucose (60-110) mg/dL Calcium 8.0 L (8.8-10.8) mg/dL 01/25/17 Range/Units 06:08 WBC (4.0-11.0) K/uL RBC (4.50-5.90) M/uL Hgb (13.0-17.0) g/dL Hct (38.0-50.0) % MCV (80.0-98.0) fL MCH (27.0-32.0) pg MCHC (31.0-37.0) g/dL RDW Std Deviation (28.0-62.0) fl RDW Coeff of Yancy (11.0-15.0) % Plt Count (150-400) K/uL MPV (7.40-12.00) fL Neut % (Auto) (48.0-80.0) % Lymph % (Auto) (16.0-40.0) % [place]uckolls % (Auto) (0.0-15.0) % Eos % (Auto) (0.0-7.0) % Baso % (Auto) (0.0-1.5) % Neut # (1.4-5.7) K/uL Lymph # (0.6-2.4) K/uL [place]olls # (0.0-0.8) K/uL Eos # (0.0-0.7) K/uL Baso # (0.0-0.1) K/uL Nucleated RBC % /100WBC Nucleated RBCs # K/uL INR (0.86-1.11) Sodium (136-146) mmol/L Potassium (3.5-5.1) mmol/L Chloride (98-110) mmol/L Carbon Dioxide (21-31) mmol/L BUN (6.0-23.0) mg/dL Creatinine (0.6-1.5) mg/dL Est Cr Clr Drug Dosing mL/min Estimated GFR (MDRD) ml/min Glucose (60-110) mg/dL POC Glucose 161 H (60-110) mg/dL Calcium (8.8-10.8) mg/dL Med Orders - Current: Current Medications Albuterol/Ipratropium (Duoneb 3.0-0.5 Mg/3 Ml) 3 ml NEB Q4HRRT PRN PRN Reason: Shortness Of Breath/wheezing Aspirin (Aspirin) 81 mg PO DAILY [facility] Last Admin: 01/25/17 09:32 Dose: 81 mg Bupropion HCl (Wellbutrin Xl) 150 mg PO DAILY [facility] Last Admin: 01/25/17 09:43 Dose: 150 mg Digoxin (Lanoxin) 125 mcg PO DAILY [facility] Last Admin: 01/25/17 09:38 Dose: 125 mcg Diltiazem HCl (Cardizem Cd) 120 mg PO DAILY [facility] Last Admin: 01/25/17 09:33 Dose: 120 mg Piperacillin Sod/Tazobactam (Sod 4.5 gm/ Sodium Chloride) 100 mls @ 100 mls/hr IV Q6H [facility] Last Admin: 01/25/17 08:41 Dose: 100 mls/hr Vancomycin HCl 1,750 mg/ (Sodium Chloride) 500 mls @ 333.333 mls/hr IV Q24H [facility] Last Admin: 01/25/17 10:00 Dose: 333.333 mls/hr Insulin Aspart (Novolog) 0 unit SUBCUT ACBED [facility] PRN Reason: Protocol Last Admin: 01/25/17 07:06 Dose: 2 units Latanoprost (Xalatan 0.005% Ophth Soln) 0 ml EYEBOTH BEDTIME [facility] Last Admin: 01/24/17 20:50 Dose: 1 drop Metoprolol Tartrate (Lopressor) 150 mg PO BID [facility] Last Admin: 01/25/17 09:39 Dose: 150 mg Nystatin (Nystop) 1 gm TOP BID [facility] Last Admin: 01/25/17 09:41 Dose: 1 applic Oxybutynin Chloride (Oxybutynin) 2.5 mg PO BEDTIME [facility] Last Admin: 01/24/17 20:45 Dose: 2.5 mg Paroxetine HCl (Paxil) 10 mg PO BID [facility] Last Admin: 01/25/17 09:42 Dose: 10 mg Alphagan P 0.1% Opth (SolutionOwn Med) 0 each EYEBOTH BID [facility] Last Admin: 01/25/17 09:42 Dose: 1 each Quetiapine Fumarate (Seroquel) 50 mg PO BEDTIME [facility] Last Admin: 01/24/17 20:47 Dose: 50 mg Sodium Chloride (Saline Flush) 10 ml FLUSH ASDIRECTED PRN PRN Reason: Keep Vein Open Sodium Chloride (Saline Flush) 2.5 ml FLUSH ASDIRECTED PRN PRN Reason: Keep Vein Open Tamsulosin HCl (Flomax) 0.4 mg PO BEDTIME [facility] Last Admin: 01/24/17 20:48 Dose: 0.4 mg Vancomycin HCl (Pharmacy To Dose - Vancomycin) 0 dose .XX ASDIRECTED [facility] Warfarin Sodium (Coumadin) 5 mg PO DAILY@1400 [facility] Last Admin: 01/24/17 14:46 Dose: 5 mg Discontinued Medications Furosemide (Lasix) 40 mg IVPUSH DAILY [facility] Last Admin: 01/24/17 08:09 Dose: 40 mg Vancomycin HCl 1,750 mg/ (Sodium Chloride) 500 mls @ 333.333 mls/hr IV Q24H [facility] Last Admin: 01/23/17 11:54 Dose: Not Given - Exam General: Reports: alert, oriented, cooperative HEENT: Reports: Pupils equal, EOMI Neck: Reports: supple, trachea midline Lungs: Reports: Decreased breath sounds Cardiovascular: Reports: regular rate, regular rhythm Abdomen: Reports: bowel sounds present, soft Extremities: Reports: no edema Skin: Reports: other (bilateral lower extemity improving. ) Neurological: Reports: no new focal deficit Psy/Mental Status: Reports: alert, normal affect, normal mood *Q Meaningful Use (DIS) - VTE *Q VTE Criteria *Q: - Stroke *Q Stroke Criteria *Q: - AMI *Q AMI Criteria *Q: <Chago Penn - Last Filed: 01/28/17 08:57> - Patient Data Vitals - Most Recent: Last Vital Signs Temp 36.7 C 01/25/17 12:00 Pulse 70 01/25/17 12:00 Resp 16 01/25/17 12:00 BP 128/66 01/25/17 12:00 Pulse Ox 96 01/25/17 12:00 Med Orders - Current: Current Medications Discontinued Medications Albuterol/Ipratropium (Duoneb 3.0-0.5 Mg/3 Ml) 3 ml NEB Q4HRRT PRN PRN Reason: Shortness Of Breath/wheezing Aspirin (Aspirin) 81 mg PO DAILY [facility] Last Admin: 01/25/17 09:32 Dose: 81 mg Bupropion HCl (Wellbutrin Xl) 150 mg PO DAILY [facility] Last Admin: 01/25/17 09:43 Dose: 150 mg Digoxin (Lanoxin) 125 mcg PO DAILY [facility] Last Admin: 01/25/17 09:38 Dose: 125 mcg Diltiazem HCl (Cardizem Cd) 120 mg PO DAILY [facility] Last Admin: 01/25/17 09:33 Dose: 120 mg Furosemide (Lasix) 40 mg IVPUSH DAILY [facility] Last Admin: 01/24/17 08:09 Dose: 40 mg Piperacillin Sod/Tazobactam (Sod 4.5 gm/ Sodium Chloride) 100 mls @ 100 mls/hr IV Q6H [facility] Last Admin: 01/25/17 08:41 Dose: 100 mls/hr Vancomycin HCl 1,750 mg/ (Sodium Chloride) 500 mls @ 333.333 mls/hr IV Q24H [facility] Last Admin: 01/23/17 11:54 Dose: Not Given Vancomycin HCl 1,750 mg/ (Sodium Chloride) 500 mls @ 333.333 mls/hr IV Q24H [facility] Last Admin: 01/25/17 10:00 Dose: 333.333 mls/hr Insulin Aspart (Novolog) 0 unit SUBCUT ACBED [facility] PRN Reason: Protocol Last Admin: 01/25/17 12:13 Dose: 2 units Latanoprost (Xalatan 0.005% Ophth Soln) 0 ml EYEBOTH BEDTIME [facility] Last Admin: 01/24/17 20:50 Dose: 1 drop Metoprolol Tartrate (Lopressor) 150 mg PO BID [facility] Last Admin: 01/25/17 09:39 Dose: 150 mg Nystatin (Nystop) 1 gm TOP BID [facility] Last Admin: 01/25/17 09:41 Dose: 1 applic Oxybutynin Chloride (Oxybutynin) 2.5 mg PO BEDTIME [facility] Last Admin: 01/24/17 20:45 Dose: 2.5 mg Paroxetine HCl (Paxil) 10 mg PO BID [facility] Last Admin: 01/25/17 09:42 Dose: 10 mg Alphagan P 0.1% Opth (SolutionOwn Med) 0 each EYEBOTH BID [facility] Last Admin: 01/25/17 09:42 Dose: 1 each Quetiapine Fumarate (Seroquel) 50 mg PO BEDTIME [facility] Last Admin: 01/24/17 20:47 Dose: 50 mg Sodium Chloride (Saline Flush) 10 ml FLUSH ASDIRECTED PRN PRN Reason: Keep Vein Open Sodium Chloride (Saline Flush) 2.5 ml FLUSH ASDIRECTED PRN PRN Reason: Keep Vein Open Tamsulosin HCl (Flomax) 0.4 mg PO BEDTIME [facility] Last Admin: 01/24/17 20:48 Dose: 0.4 mg Vancomycin HCl (Pharmacy To Dose - Vancomycin) 0 dose .XX ASDIRECTED [facility] Warfarin Sodium (Coumadin) 5 mg PO DAILY@1400 [facility] Last Admin: 01/24/17 14:46 Dose: 5 mg *Q Meaningful Use (DIS) - VTE *Q VTE Criteria *Q: - Stroke *Q Stroke Criteria *Q: - AMI *Q AMI Criteria *Q: - Free Text/Narrative Note: I have examined the patient. I have discussed treatment plan with the resident. The 1/ positive blood culture was felt to be a likely contaminate. Patient is discharged on oral antibiotic for treatment of his resolving lower leg cellulitis.
[2017-01-25 12:06] VITALS: BP 128/66
== END 2017-01-25 12:30 | disposition home health service (06) | DRG 603 ==
LOC: MW.ED 00:52 → MW.MS 03:44 → OBSVTOIN 01-24 11:55 → MW.MS 01-24 14:13
PROVIDERS: ADMIT Internal Medicine; ATTEND Internal Medicine
DX: L03.116 Cellulitis of left lower limb (principal); I96 Gangrene, not elsewhere classified; L03.115 Cellulitis of right lower limb; R29.6 Repeated falls; R60.0 Localized edema; R21 Rash and other nonspecific skin eruption; R53.1 Weakness; I48.91 Unspecified atrial fibrillation; E78.00 Pure hypercholesterolemia, unspecified; I10 Essential (primary) hypertension; J44.9 Chronic obstructive pulmonary disease, unspecified; F03.90 Unspecified dementia, unspecified severity, without behavioral disturbance, psychotic disturbance, mood disturbance, and anxiety; F32.9 Major depressive disorder, single episode, unspecified; E11.9 Type 2 diabetes mellitus without complications; Z79.01 Long term (current) use of anticoagulants; N40.0 Benign prostatic hyperplasia without lower urinary tract symptoms; Z87.891 Personal history of nicotine dependence; Z79.899 Other long term (current) drug therapy; Z79.82 Long term (current) use of aspirin
CPT/HCPCS: 36415 ×2; 70450; 71010; 80048; 80053; 80162; 81001; 82962 ×6; 83880; 84484; 85025 ×2; 85610; 87040 ×2; 93005; 97162; 97530 ×2; 99285; A9270 ×18; J1815; J1940 ×2; J2543 ×5; J3370 ×2; J7030 ×5; J7040 ×2; 87186; 96365; 96366; 96367; 96375; 96376; 97161-GP; 97802; G0378

== ENCOUNTER → 2017-02-04 | Outpatient (CLI) | payer MEDICARE, OTHER | LOC: MW.CHFP 08:00 | PROVIDERS: ATTEND Emergency Medicine | DX: L03.119 Cellulitis of unspecified part of limb (principal); R60.9 Edema, unspecified | CPT/HCPCS: G0463 ==

== ENCOUNTER → 2017-02-12 | Outpatient (CLI) | payer MEDICARE, OTHER ==
[2017-02-12 14:48] LABS: CHLORIDE,CL 102 mmol/L (98-110); SODIUM,NA 137 mmol/L (136-146)
== END ==
LOC: MW.CHFP 13:51
PROVIDERS: ATTEND Emergency Medicine
DX: E11.9 Type 2 diabetes mellitus without complications (principal); Z79.01 Long term (current) use of anticoagulants; R60.9 Edema, unspecified; I10 Essential (primary) hypertension; B37.2 Candidiasis of skin and nail
CPT/HCPCS: 36415; 80048; 83036; 85027; 85610; G0463

== ENCOUNTER → 2017-04-05 | Outpatient (CLI) | payer MEDICARE, OTHER ==
[2017-04-05 11:21] LABS: CHLORIDE,CL 103 mmol/L (98-110); SODIUM,NA 140 mmol/L (136-146)
== END ==
LOC: MW.CHFP 10:32
PROVIDERS: ATTEND Emergency Medicine
DX: Z51.81 Encounter for therapeutic drug level monitoring (principal); Z79.01 Long term (current) use of anticoagulants; R60.9 Edema, unspecified
CPT/HCPCS: 36415; 80048; 85610; G0463

== ENCOUNTER 2017-05-30 17:13 | Inpatient (IN) | payer MEDICARE, OTHER ==
--- NOTE | 2017-05-30 17:36 | EDM.PDOC ---
ED HPI GENERAL MEDICAL PROBLEM - General Chief Complaint: Neurological Problem Stated Complaint: PT BEDRIDDEN Time Seen by Provider: 05/30/17 17:25 Source of Information: Reports: Patient History Limitations: Reports: No Limitations - History of Present Illness INITIAL COMMENTS - FREE TEXT/NARRATIVE: History of present illness: 81-year-old male is brought in by EMS secondary to 's concern of his decreased energy level, his inability to get out of the bed, and his general malaise and lethargy. She called their primary care provider Dr. Cardoza directed them to have him come to the ER. Review of systems: As per history of present illness and below otherwise all systems reviewed and negative. Past medical history: As per history of present illness and as reviewed below otherwise noncontributory. Surgical history: As per history of present illness and as reviewed below otherwise noncontributory. Social history: No reported history of drug or alcohol abuse. Family history: As per history of present illness and as reviewed below otherwise noncontributory. Physical exam: HEENT: Atraumatic, normocephalic, pupils reactive, negative for conjunctival pallor or scleral icterus, mucous membranes moist, throat clear, neck supple, nontender, trachea midline. Lungs: Clear to auscultation, breath sounds equal bilaterally, chest nontender. Heart: Dim throughout with poor air movement, negative for clicks, rubs, or JVD. Abdomen: Soft, protuberant, nontender. Negative for masses or hepatosplenomegaly. Negative for costovertebral tenderness. Pelvis: Stable nontender. Genitourinary: Deferred. Rectal: Deferred. Extremities: Atraumatic, negative for cords or calf pain. Neurovascular unremarkable. Neuro: Drowsy and oriented to person and place, unable to test fully the cranial nerves because patient is drowsy and will not fully participate. Diagnostics: [Chest x-ray, CT of the head, CBC, CMP, troponin, ABG, lactic acid] Therapeutics: [] Impression: [Leukocytosis] Plan: [Admit] Definitive disposition and diagnosis as appropriate pending reevaluation and review of above. - Related Data Allergies Allergy/AdvReac Type Severity Reaction Status Date / Time No Known Allergies Allergy Verified 05/30/17 17:41 Home Meds: Home Meds Albuterol Sulfate [Albuterol Sulfate HFA] 2 inh IH Q6HR PRN 04/19/14 [History] Brimonidine Tartrate [Alphagan P 0.1% Ophth Soln] 1 drop EYEBOTH BID 04/19/14 [ History] Latanoprost [Xalatan 0.005% Ophth Soln] 1 drop EYEBOTH BEDTIME 04/19/14 [History ] PARoxetine HCl [Paroxetine HCl] 10 mg PO BID 04/19/14 [History] atorvaSTATin Calcium [Atorvastatin Calcium] 40 mg PO BEDTIME 04/19/14 [History] Aspirin [Adan Chewable Aspirin] 81 mg PO DAILY #30 tab.chew 04/28/14 [Rx] Digoxin [Lanoxin] 125 mcg PO DAILY #30 tab 04/28/14 [Rx] Oxybutynin 2.5 mg PO BEDTIME 08/11/16 [History] Diltiazem [Cardizem CD] 120 mg PO DAILY 01/03/17 [History] buPROPion [buPROPion XL] 150 mg PO DAILY 01/04/17 [History] metFORMIN HCl [Metformin HCl] 1,000 mg PO BIDMEALS 01/04/17 [History] Metoprolol Tartrate [Lopressor] 150 mg PO BID #180 tablet 01/07/17 [Rx] QUEtiapine [SEROquel] 50 mg PO BEDTIME 01/23/17 [History] Warfarin [Coumadin] 5 mg PO SUTUWETHSA@209901/23/17 [History] Dicloxacillin Sodium 500 mg PO QID 05/30/17 [History] Docusate Sodium 100 mg PO SUTUTH@209905/30/17 [History] Glimepiride [Amaryl] 2 mg PO WITHBREAKFAST 05/30/17 [History] Warfarin [Coumadin] 2.5 mg PO MOFR@209905/30/17 [History] Past Medical History - Past Health History Medical/Surgical History: Denies Medical/Surgical History HEENT History: Reports: Glaucoma, Hard of Hearing Cardiovascular History: Reports: Afib, High Cholesterol, Hypertension Respiratory History: Reports: COPD, PE Other Gastrointestinal History: recurrent cholecystitis Genitourinary History: Reports: Prostate Disorder, Urinary Incontinence Musculoskeletal History: Reports: None Neurological History: Reports: Other (See Below) Other Neuro History: Dementia Psychiatric History: Reports: Dementia, Depression Endocrine/Metabolic History: Reports: Diabetes, Type II Dermatologic History: Reports: Other (See Below) Other Dermatologic History: Cellulitis notd at left sheen, Right sheen, back of the knee. Old wound noted at lower and upper extremities - Infectious Disease History Infectious Disease History: Reports: None - Past Surgical History GI Surgical History: Reports: Appendectomy, Cholecystectomy, Hernia, Inguinal Social & Family History - Family History Family Medical History: Noncontributory HEENT: Reports: Cataract, Impaired Vision GI: Reports: Other (See Below) Other GI Family History: unable to recall OBGYN: Reports: Endocrine/Metabolic: Reports: Diabetes, type II - Tobacco Use Smoking Status *Q: Former Smoker Years of Tobacco use: 20 Used Tobacco, but Quit: Yes Month Tobacco Last Used: 40 yrs ago Second Hand Smoke Exposure: No - Caffeine Use Caffeine Use: Reports: Coffee - Alcohol Use Days Per Week of Alcohol Use: 0 - Recreational Drug Use Recreational Drug Use: No ED ROS GENERAL - Review of Systems Review Of Systems: See Below (See history of present illness) ED EXAM, NEURO - Physical Exam Exam: See Below (See history of present illness) Course - Vital Signs Last Recorded V/S: Last Vital Signs Temp 36.6 C 05/30/17 19:14 Pulse 71 05/30/17 19:14 Resp 18 05/30/17 19:14 BP 126/63 05/30/17 19:14 Pulse Ox 95 05/30/17 19:14 - Orders/Labs/Meds Orders: Active Orders 24 hr Category Date Time Status Patient Status [ADT] Stat ADT 05/30/17 19:40 Ordered EKG Documentation Completion [RC] STAT Care 05/30/17 17:31 Active CXR [Chest 2V] [CR] Stat Exams 05/30/17 17:31 Taken Head wo Cont [CT] Stat Exams 05/30/17 17:31 Taken CULTURE BLOOD [BC] Stat Lab 05/30/17 18:28 Results CULTURE BLOOD [BC] Stat Lab 05/30/17 18:53 Received CULTURE URINE [RM] Stat Lab 05/30/17 19:39 Uncollected Blood Culture x2 Reflex Set [OM.PC] Stat Oth 05/30/17 18:12 Ordered Labs: Laboratory Tests 05/30/17 05/30/17 05/30/17 Range/Units 17:28 17:28 17:28 WBC 21.22 H (4.0-11.0) K/uL RBC 4.83 (4.50-5.90) M/uL Hgb 14.8 (13.0-17.0) g/dL Hct 44.6 (38.0-50.0) % MCV 92.3 (80.0-98.0) fL MCH 30.6 (27.0-32.0) pg MCHC 33.2 (31.0-37.0) g/dL RDW Std Deviation 46.8 (28.0-62.0) fl RDW Coeff of Yancy 14 (11.0-15.0) % Plt Count 255 (150-400) K/uL MPV 10.50 (7.40-12.00) fL Neut % (Auto) 82.1 H (48.0-80.0) % Lymph % (Auto) 9.9 L (16.0-40.0) % [place] % (Auto) 7.8 (0.0-15.0) % Eos % (Auto) 0.0 (0.0-7.0) % Baso % (Auto) 0.2 (0.0-1.5) % Neut # (Auto) 17.4 H (1.4-5.7) K/uL Lymph # (Auto) 2.1 (0.6-2.4) K/uL [place] # (Auto) 1.7 H (0.0-0.8) K/uL Eos # (Auto) 0.0 (0.0-0.7) K/uL Baso # (Auto) 0.0 (0.0-0.1) K/uL Nucleated RBC % 0.0 /100WBC Nucleated RBCs # 0 K/uL ABG pH (7.35-7.45) ABG pCO2 (35-45) mmHG ABG pO2 (75-100) mmHG ABG HCO3 (22-26) mEq/L ABG Total CO2 ABG Base Excess (-2.0-2.0) Lactate (0.20-2.00) mmol/L Sodium 139 (136-146) mmol/L Potassium 3.8 (3.5-5.1) mmol/L Chloride 103 (98-110) mmol/L Carbon Dioxide 24 (21-31) mmol/L BUN 12 (6.0-23.0) mg/dL Creatinine 1.1 (0.6-1.5) mg/dL Est Cr Clr Drug Dosing 56.36 mL/min Estimated GFR (MDRD) > 60.0 ml/min Glucose 133 H (60-110) mg/dL Calcium 9.3 (8.8-10.8) mg/dL Total Bilirubin 1.2 (0.1-1.5) mg/dL AST 29 (5-40) IU/L ALT 19 (8-54) IU/L Alkaline Phosphatase 82 (40-150) Troponin I < 0.10 (0.0-0.29) NG/ML Total Protein 7.1 (6.0-8.0) g/dL Albumin 3.7 (3.4-4.8) g/dL Globulin 3.4 (2.0-3.5) g/dL Albumin/Globulin Ratio 1.1 L (1.3-2.8) Urine Color Urine Appearance Urine pH (5.0-8.0) Ur Specific [place] (1.001-1.035) Urine Protein (NEGATIVE) mg/dL Urine Glucose (UA) (NEGATIVE) mg/dL Urine Ketones (NEGATIVE) mg/dL Urine Occult Blood (NEGATIVE) Urine Nitrite (NEGATIVE) Urine Bilirubin (NEGATIVE) Urine Urobilinogen (<2.0) EU/dL Ur Leukocyte Esterase (NEGATIVE) Urine RBC (0-2/HPF) Urine WBC (0-5/HPF) Ur Epithelial Cells (NONE-FEW) Urine Bacteria (NEGATIVE) 05/30/17 05/30/17 05/30/17 Range/Units 17:28 17:34 18:44 WBC (4.0-11.0) K/uL RBC (4.50-5.90) M/uL Hgb (13.0-17.0) g/dL Hct (38.0-50.0) % MCV (80.0-98.0) fL MCH (27.0-32.0) pg MCHC (31.0-37.0) g/dL RDW Std Deviation (28.0-62.0) fl RDW Coeff of Yancy (11.0-15.0) % Plt Count (150-400) K/uL MPV (7.40-12.00) fL Neut % (Auto) (48.0-80.0) % Lymph % (Auto) (16.0-40.0) % [place] % (Auto) (0.0-15.0) % Eos % (Auto) (0.0-7.0) % Baso % (Auto) (0.0-1.5) % Neut # (Auto) (1.4-5.7) K/uL Lymph # (Auto) (0.6-2.4) K/uL [place] # (Auto) (0.0-0.8) K/uL Eos # (Auto) (0.0-0.7) K/uL Baso # (Auto) (0.0-0.1) K/uL Nucleated RBC % /100WBC Nucleated RBCs # K/uL ABG pH 7.460 H (7.35-7.45) ABG pCO2 36 (35-45) mmHG ABG pO2 57 L (75-100) mmHG ABG HCO3 26 (22-26) mEq/L ABG Total CO2 22.3 ABG Base Excess 1.7 (-2.0-2.0) Lactate 2.5 H (0.20-2.00) mmol/L Sodium (136-146) mmol/L Potassium (3.5-5.1) mmol/L Chloride (98-110) mmol/L Carbon Dioxide (21-31) mmol/L BUN (6.0-23.0) mg/dL Creatinine (0.6-1.5) mg/dL Est Cr Clr Drug Dosing mL/min Estimated GFR (MDRD) ml/min Glucose (60-110) mg/dL Calcium (8.8-10.8) mg/dL Total Bilirubin (0.1-1.5) mg/dL AST (5-40) IU/L ALT (8-54) IU/L Alkaline Phosphatase (40-150) Troponin I (0.0-0.29) NG/ML Total Protein (6.0-8.0) g/dL Albumin (3.4-4.8) g/dL Globulin (2.0-3.5) g/dL Albumin/Globulin Ratio (1.3-2.8) Urine Color YELLOW Urine Appearance CLEAR Urine pH 5.5 (5.0-8.0) Ur Specific [place] 1.025 (1.001-1.035) Urine Protein TRACE (NEGATIVE) mg/dL Urine Glucose (UA) NEGATIVE (NEGATIVE) mg/dL Urine Ketones NEGATIVE (NEGATIVE) mg/dL Urine Occult Blood SMALL H (NEGATIVE) Urine Nitrite NEGATIVE (NEGATIVE) Urine Bilirubin NEGATIVE (NEGATIVE) Urine Urobilinogen 0.2 (<2.0) EU/dL Ur Leukocyte Esterase TRACE (NEGATIVE) Urine RBC 0-2 (0-2/HPF) Urine WBC 4-8 (0-5/HPF) Ur Epithelial Cells OCCASIONAL (NONE-FEW) Urine Bacteria FEW (NEGATIVE) Departure - Departure Time of Disposition: 19:31 Disposition: Admitted As Inpatient 68 Condition: Good Clinical Impression: Leukocytosis - Discharge Information Referrals: PCP,None [Primary Care Provider] - Forms: ED Department Discharge - My Orders Last 24 Hours: My Active Orders 05/30/17 17:31 EKG Documentation Completion [RC] STAT CXR [Chest 2V] [CR] Stat Head wo Cont [CT] Stat 05/30/17 19:39 CULTURE URINE [RM] Stat 05/30/17 19:40 Patient Status [ADT] Stat - Assessment/Plan Last 24 Hours: My Active Orders 05/30/17 17:31 EKG Documentation Completion [RC] STAT CXR [Chest 2V] [CR] Stat Head wo Cont [CT] Stat 05/30/17 19:39 CULTURE URINE [RM] Stat 05/30/17 19:40 Patient Status [ADT] Stat
[2017-05-30 18:04] LABS: CHLORIDE,CL 103 mmol/L (98-110); SODIUM,NA 139 mmol/L (136-146)
--- NOTE | 2017-05-30 20:28 | PCM.HP ---
H&P History of Present Illness - General Date of Service: 05/30/17 Admit Problem/Dx: Admission Diagnosis/Problem Admission Diagnosis/Problem Leukocytosis Source of Information: Patient, Family, Old Records, Provider - History of Present Illness Initial Comments - Free Text/Narative: He presented to the ED today with worsening confusion and anorexia since last night. He had a fever of over 101 yesterday. He lives with his and has a history of frequent falls. He has not complained of pain, cough or dysuria. He has dementia and is, at times quite agitated. His has trouble caring for him at home at times. He does ambulate unassisted but has a very unsteady gait and falls frequently His primary attending physician is Dr. Gurinder Marshall. - Related Data Allergies/Adverse Reactions: Allergies Allergy/AdvReac Type Severity Reaction Status Date / Time No Known Allergies Allergy Verified 05/30/17 17:41 Home Medications: Home Meds Albuterol Sulfate [Albuterol Sulfate HFA] 2 inh IH Q6HR PRN 04/19/14 [History] Brimonidine Tartrate [Alphagan P 0.1% Ophth Soln] 1 drop EYEBOTH BID 04/19/14 [ History] Latanoprost [Xalatan 0.005% Ophth Soln] 1 drop EYEBOTH BEDTIME 04/19/14 [History ] PARoxetine HCl [Paroxetine HCl] 10 mg PO BID 04/19/14 [History] atorvaSTATin Calcium [Atorvastatin Calcium] 40 mg PO BEDTIME 04/19/14 [History] Aspirin [Adan Chewable Aspirin] 81 mg PO DAILY #30 tab.chew 04/28/14 [Rx] Digoxin [Lanoxin] 125 mcg PO DAILY #30 tab 04/28/14 [Rx] Oxybutynin 2.5 mg PO BEDTIME 08/11/16 [History] Diltiazem [Cardizem CD] 120 mg PO DAILY 01/03/17 [History] buPROPion [buPROPion XL] 150 mg PO DAILY 01/04/17 [History] metFORMIN HCl [Metformin HCl] 1,000 mg PO BIDMEALS 01/04/17 [History] Metoprolol Tartrate [Lopressor] 150 mg PO BID #180 tablet 01/07/17 [Rx] QUEtiapine [SEROquel] 50 mg PO BEDTIME 01/23/17 [History] Warfarin [Coumadin] 5 mg PO SUTUWETHSA@209901/23/17 [History] Dicloxacillin Sodium 500 mg PO QID 05/30/17 [History] Docusate Sodium 100 mg PO SUTUTH@209905/30/17 [History] Glimepiride [Amaryl] 2 mg PO WITHBREAKFAST 05/30/17 [History] Warfarin [Coumadin] 2.5 mg PO MOFR@209905/30/17 [History] Past Medical History - Past Health History Medical/Surgical History: Denies Medical/Surgical History HEENT History: Reports: Glaucoma, Hard of Hearing Cardiovascular History: Reports: Afib, High Cholesterol, Hypertension, Pacemaker , PVD Respiratory History: Reports: COPD, PE Gastrointestinal History: Denies: Cirrhosis Other Gastrointestinal History: recurrent cholecystitis Genitourinary History: Reports: Prostate Disorder, Urinary Incontinence Musculoskeletal History: Reports: None Neurological History: Reports: Other (See Below) Other Neuro History: Dementia Psychiatric History: Reports: Dementia, Depression Endocrine/Metabolic History: Reports: Diabetes, Type II Oncologic (Cancer) History: Reports: None Dermatologic History: Reports: Other (See Below) Other Dermatologic History: Cellulitis notd at left sheen, Right sheen, back of the knee. Old wound noted at lower and upper extremities - Infectious Disease History Infectious Disease History: Reports: None - Past Surgical History Cardiovascular Surgical History: Reports: Pacer, Vascular Surgery GI Surgical History: Reports: Appendectomy, Cholecystectomy, Hernia, Inguinal Social & Family History - Family History Family Medical History: Noncontributory HEENT: Reports: Cataract, Impaired Vision GI: Reports: Other (See Below) Other GI Family History: unable to recall OBGYN: Reports: Endocrine/Metabolic: Reports: Diabetes, type II - Tobacco Use Smoking Status *Q: Former Smoker Years of Tobacco use: 20 Used Tobacco, but Quit: Yes Month Tobacco Last Used: 40 yrs ago Second Hand Smoke Exposure: No - Caffeine Use Caffeine Use: Reports: Coffee - Alcohol Use Days Per Week of Alcohol Use: 0 Alcohol Use Comment: he quit drinking alcohol in the - Recreational Drug Use Recreational Drug Use: No H&P Review of Systems - Review of Systems: Review Of Systems: See Below General: Reports: Fever Pulmonary: Denies: Shortness of Breath, Cough, Sputum Cardiovascular: Denies: Chest Pain, Palpitations Gastrointestinal: Reports: Anorexia, Decreased Appetite. Denies: Abdominal Pain , Black Stool, Bloody Stool, Hematemesis, Hematochezia, Melena Genitourinary: Denies: Dysuria, Hematuria Psychiatric: Reports: Confusion, Agitation Exam - Exam Exam: See Below - Vital Signs Vital Signs: Last Vital Signs Temp 97.8 F 05/30/17 19:14 Pulse 71 05/30/17 19:14 Resp 18 05/30/17 19:14 BP 126/63 05/30/17 19:14 Pulse Ox 95 05/30/17 19:14 Weight: 116.6 kg - Exam General: Alert, Cooperative. No: Lethargic HEENT: Conjunctiva Clear, Mucosa Moist & [place] (multiple teeth absent; some gingival recession) Neck: Supple Lungs: Clear to Auscultation, Normal Respiratory Effort Cardiovascular: Regular Rate, Regular Rhythm, Systolic Murmur Abdomen: Soft, Tenderness (there is a question of mild diffuse tenderness; no guarding ; no rebound tenderness) (Male) Exam: No: Circumcised, Penile Lesions, Scrotal Swelling Rectal (Males) Exam: Deferred Extremities: Other (left medial great toe with slight inflammatory changes ; no obvious tenderness). No: Edema Neurological: Normal Speech (he can speak but his speech is somewhat confused. He can have simple conversations) Neuro Extensive - Mental Status: No: Normal Cognition Neuro Extensive - Motor, Sensory, Reflexes: No: Dysarthria Psychiatric: No: Agitated - Patient Data Result Diagrams: 05/30/17 17:28 05/30/17 17:28 *Q Meaningful Use (ADM) - VTE *Q VTE Criteria *Q: - Stroke *Q Stroke Criteria *Q: - AMI *Q AMI Criteria *Q: - Problem List (1) Sepsis SNOMED Code(s): 97165950 ICD Code: A41.9 - SEPSIS, UNSPECIFIED ORGANISM Status: Acute Current Visit: Yes (2) Leukocytosis SNOMED Code(s): 287689149, 506502816 ICD Code: D72.829 - ELEVATED WHITE BLOOD CELL COUNT, UNSPECIFIED Status: Acute Current Visit: Yes (3) Atrial fibrillation SNOMED Code(s): 16445752 ICD Code: I48.91 - UNSPECIFIED ATRIAL FIBRILLATION Status: Acute Current Visit: No (4) History of COPD SNOMED Code(s): 570862174 ICD Code: Z87.09 - PERSONAL HISTORY OF OTHER DISEASES OF THE RESPIRATORY SYSTEM Status: Acute Current Visit: Yes (5) Dementia SNOMED Code(s): 04421802 ICD Code: F03.90 - UNSPECIFIED DEMENTIA WITHOUT BEHAVIORAL DISTURBANCE Status: Acute Current Visit: Yes (6) Agitation SNOMED Code(s): 10233228 ICD Code: R45.1 - RESTLESSNESS AND AGITATION Status: Acute Current Visit : Yes Problem List Initiated/Reviewed/Updated: Yes Assessment/Plan Comment:: admit see orders I discussed resuscitation status with his and daughter. They state that he has had DNR in the past and this is their current wish. Italo VIEYRA
[2017-05-30] MEDS ORDERED: Ondansetron 4 MG Tab.DIS PO PRN (20:37)
[2017-05-30] MEDS ORDERED: Sodium Chloride 0.9% 2.5 ML Syringe FLUSH PRN (20:37)
[2017-05-30] MEDS ORDERED: Sodium Chloride 0.9% 10 ML Syringe FLUSH PRN (20:37)
[2017-05-30] MEDS ORDERED: Acetaminophen 325 MG Tab PO PRN (20:37)
[2017-05-30] MEDS ORDERED: LORazepam 2 MG/ML MDV IVPUSH PRN (20:37)
[2017-05-30] MEDS ORDERED: Morphine 2 MG/ML Syringe IVPUSH PRN (20:37)
[2017-05-30] MEDS ORDERED: Warfarin 5 MG Tab PO SCH (21:00)
[2017-05-30] MEDS: BRIMONIDINE TARTRATE EYEBOTH SCH (21:30)
[2017-05-30] MEDS: Docusate Sodium 100 MG Cap PO SCH (21:54)
[2017-05-30] MEDS: Metoprolol Tartrate 50 MG Tab PO SCH (21:55)
[2017-05-30] MEDS: PARoxetine 20 MG Tab PO SCH (22:00)
[2017-05-30] MEDS: Temazepam 15 MG Cap PO PRN (22:00)
[2017-05-30] MEDS: atorvaSTATin 40 MG Tab PO SCH (22:00)
[2017-05-30] MEDS: Piperacillin/Tazobactam 3.375 GM in Sodium Chloride 0.9% 50 ML IV SCH (22:00)
[2017-05-30] MEDS: Latanoprost 0.005% Ophth Soln 2.5 ML Bottle EYEBOTH SCH (22:47)
[2017-05-31] MEDS: Piperacillin/Tazobactam 3.375 GM in Sodium Chloride 0.9% 50 ML IV SCH ×5 (02:45→22:44)
[2017-05-31 05:31] LABS: CHLORIDE,CL 105 mmol/L (98-110); SODIUM,NA 140 mmol/L (136-146)
[2017-05-31] MEDS: buPROPion 150 MG Tab.ER PO SCH (08:51)
[2017-05-31] MEDS: Aspirin 81 MG Tab.Chew PO SCH (08:51)
[2017-05-31] MEDS: PARoxetine 20 MG Tab PO SCH ×2 (08:51→21:21)
[2017-05-31] MEDS: Docusate Sodium 100 MG Cap PO SCH ×2 (08:51→21:24)
[2017-05-31] MEDS: Metoprolol Tartrate 50 MG Tab PO SCH ×2 (08:52→21:23)
[2017-05-31] MEDS: Glimepiride 2 MG Tab PO SCH (08:52)
[2017-05-31] MEDS: Digoxin 125 MCG Tab PO SCH (08:52)
[2017-05-31] MEDS: Diltiazem 120 MG Cap.CD PO SCH (08:52)
[2017-05-31] MEDS: BRIMONIDINE TARTRATE EYEBOTH SCH ×2 (08:59→21:53)
[2017-05-31] MEDS ORDERED: Magnesium Sulfate/Water 2 GM in Premix Bag 1 BAG IV ONE (09:07)
--- NOTE | 2017-05-31 10:03 | PCM.PN ---
- General Info Date of Service: 05/31/17 - Review of Systems Systems Review Comment:: he is alert he is pleasantly confused no vomiting - Patient Data Vitals - most recent: Last Vital Signs Temp 97.5 F 05/31/17 07:49 Pulse 70 05/31/17 08:52 Resp 18 05/31/17 07:49 BP 155/63 H 05/31/17 08:52 Pulse Ox 93 L 05/31/17 07:49 Weight - most recent: 116.6 kg I&O - last 24 hours: Intake & Output 05/30/17 05/31/17 05/31/17 22:59 06:59 14:59 Intake Total 50 200 Output Total 800 Balance 50 -600 Lab Results last 24 hrs: Laboratory Results - last 24 hr 05/30/17 05/30/17 05/31/17 Range/Units 23:10 23:10 04:48 WBC 16.82 H (4.0-11.0) K/uL RBC 4.61 (4.50-5.90) M/uL Hgb 14.0 (13.0-17.0) g/dL Hct 42.3 (38.0-50.0) % MCV 91.8 (80.0-98.0) fL MCH 30.4 (27.0-32.0) pg MCHC 33.1 (31.0-37.0) g/dL RDW Std Deviation 46.7 (28.0-62.0) fl RDW Coeff of Yancy 14 (11.0-15.0) % Plt Count 251 (150-400) K/uL MPV 10.60 (7.40-12.00) fL Neut % (Auto) 78.8 (48.0-80.0) % Lymph % (Auto) 12.4 L (16.0-40.0) % Adams % (Auto) 8.4 (0.0-15.0) % Eos % (Auto) 0.2 (0.0-7.0) % Baso % (Auto) 0.2 (0.0-1.5) % Neut # (Auto) 13.3 H (1.4-5.7) K/uL Lymph # (Auto) 2.1 (0.6-2.4) K/uL Adams # (Auto) 1.4 H (0.0-0.8) K/uL Eos # (Auto) 0.0 (0.0-0.7) K/uL Baso # (Auto) 0.0 (0.0-0.1) K/uL Nucleated RBC % 0.0 /100WBC Nucleated RBCs # 0 K/uL INR 2.79 H (0.86-1.11) Lactate (0.20-2.00) mmol/L Sodium (136-146) mmol/L Potassium (3.5-5.1) mmol/L Chloride (98-110) mmol/L Carbon Dioxide (21-31) mmol/L BUN (6.0-23.0) mg/dL Creatinine (0.6-1.5) mg/dL Est Cr Clr Drug Dosing mL/min Estimated GFR (MDRD) ml/min Glucose (60-110) mg/dL POC Glucose 125 H (60-110) mg/dL Calcium (8.8-10.8) mg/dL Magnesium (1.5-2.3) mEq/L Digoxin (0.8-2.0) ng/mL 05/31/17 05/31/17 05/31/17 Range/Units 04:48 04:48 04:48 WBC (4.0-11.0) K/uL RBC (4.50-5.90) M/uL Hgb (13.0-17.0) g/dL Hct (38.0-50.0) % MCV (80.0-98.0) fL MCH (27.0-32.0) pg MCHC (31.0-37.0) g/dL RDW Std Deviation (28.0-62.0) fl RDW Coeff of Yancy (11.0-15.0) % Plt Count (150-400) K/uL MPV (7.40-12.00) fL Neut % (Auto) (48.0-80.0) % Lymph % (Auto) (16.0-40.0) % Adams % (Auto) (0.0-15.0) % Eos % (Auto) (0.0-7.0) % Baso % (Auto) (0.0-1.5) % Neut # (Auto) (1.4-5.7) K/uL Lymph # (Auto) (0.6-2.4) K/uL Adams # (Auto) (0.0-0.8) K/uL Eos # (Auto) (0.0-0.7) K/uL Baso # (Auto) (0.0-0.1) K/uL Nucleated RBC % /100WBC Nucleated RBCs # K/uL INR 2.74 H (0.86-1.11) Lactate 1.4 (0.20-2.00) mmol/L Sodium 140 (136-146) mmol/L Potassium 3.6 (3.5-5.1) mmol/L Chloride 105 (98-110) mmol/L Carbon Dioxide 24 (21-31) mmol/L BUN 12 (6.0-23.0) mg/dL Creatinine 1.1 (0.6-1.5) mg/dL Est Cr Clr Drug Dosing 56.22 mL/min Estimated GFR (MDRD) > 60.0 ml/min Glucose 147 H (60-110) mg/dL POC Glucose (60-110) mg/dL Calcium 8.4 L (8.8-10.8) mg/dL Magnesium 1.3 L (1.5-2.3) mEq/L Digoxin 0.49 L (0.8-2.0) ng/mL Med Orders - Current: Current Medications Acetaminophen (Tylenol) 325 mg PO Q4H PRN PRN Reason: Pain (Mild 1-3)/fever Aspirin (Aspirin) 81 mg PO DAILY [facility] Last Admin: 05/31/17 08:51 Dose: 81 mg Atorvastatin Calcium (Lipitor) 40 mg PO BEDTIME [facility] Last Admin: 05/30/17 22:00 Dose: 40 mg Bupropion HCl (Wellbutrin Xl) 150 mg PO DAILY [facility] Last Admin: 05/31/17 08:51 Dose: 150 mg Digoxin (Lanoxin) 125 mcg PO DAILY [facility] Last Admin: 05/31/17 08:52 Dose: 125 mcg Diltiazem HCl (Cardizem Cd) 120 mg PO DAILY [facility] Last Admin: 05/31/17 08:52 Dose: 120 mg Docusate Sodium (Colace) 100 mg PO BID [facility] Last Admin: 05/31/17 08:51 Dose: 100 mg Glimepiride (Amaryl) 2 mg PO WITHBREAKFAST [facility] Last Admin: 07/14/17 08:52 Dose: 2 mg Piperacillin Sod/Tazobactam (Sod 3.375 gm/ Sodium Chloride) 50 mls @ 100 mls/ hr IV Q6H [facility] Last Admin: 05/31/17 02:45 Dose: 100 mls/hr Magnesium Sulfate 2 gm/ Premix 50 mls @ 50 mls/hr IV ONETIME ONE Stop: 05/31/17 10:06 Latanoprost (Xalatan 0.005% Ophth Soln) 0 ml EYEBOTH BEDTIME [facility] Last Admin: 05/30/17 22:47 Dose: 1 drop Lorazepam (Ativan) 1 mg IVPUSH Q4H PRN PRN Reason: Anxiety Metoprolol Tartrate (Lopressor) 150 mg PO BID [facility] Last Admin: 05/31/17 08:52 Dose: 150 mg Morphine Sulfate (Morphine) 2 mg IVPUSH Q2H PRN PRN Reason: Pain (severe 7-10) Stop: 05/31/17 20:39 Ondansetron HCl (Zofran Odt) 4 mg PO Q4H PRN PRN Reason: nausea, able to take PO Paroxetine HCl (Paxil) 10 mg PO BID [facility] Last Admin: 05/31/17 08:51 Dose: 10 mg Brimonidine Tartrate (1 Drop) 1 each EYEBOTH BID [facility] Last Admin: 05/31/17 08:59 Dose: Not Given Quetiapine Fumarate (Seroquel) 50 mg PO BEDTIME [facility] Last Admin: 05/30/17 22:00 Dose: 50 mg Sodium Chloride (Saline Flush) 10 ml FLUSH ASDIRECTED PRN PRN Reason: Keep Vein Open Sodium Chloride (Saline Flush) 2.5 ml FLUSH ASDIRECTED PRN PRN Reason: Keep Vein Open Temazepam (Restoril) 15 mg PO BEDTIME PRN PRN Reason: Sleep Last Admin: 05/30/17 22:00 Dose: 15 mg Warfarin Sodium (Coumadin) 2.5 mg PO MOFR@2100 [facility] Warfarin Sodium (Coumadin) 5 mg PO SUTUWETHSA@2100 [facility] Last Admin: 05/30/17 23:50 Dose: 5 mg - Exam General: alert, cooperative. No: oriented Lungs: Clear to auscultation, Normal respiratory effort Cardiovascular: Regular Rate, Regular Rhythm Abdomen: soft. No: no tenderness Extremities: no edema - Problem List & Annotations (1) Sepsis SNOMED Code(s): 37890734 Code(s): A41.9 - SEPSIS, UNSPECIFIED ORGANISM Status: Acute Current Visit : Yes (2) Leukocytosis SNOMED Code(s): 065691511, 613632863 Code(s): D72.829 - ELEVATED WHITE BLOOD CELL COUNT, UNSPECIFIED Status: Acute Current Visit: Yes (3) Atrial fibrillation SNOMED Code(s): 02193468 Code(s): I48.91 - UNSPECIFIED ATRIAL FIBRILLATION Status: Acute Current Visit: No (4) History of COPD SNOMED Code(s): 077884659 Code(s): Z87.09 - PERSONAL HISTORY OF OTHER DISEASES OF THE RESPIRATORY SYSTEM Status: Acute Current Visit: Yes (5) Dementia SNOMED Code(s): 92110114 Code(s): F03.90 - UNSPECIFIED DEMENTIA WITHOUT BEHAVIORAL DISTURBANCE Status: Acute Current Visit: Yes (6) Agitation SNOMED Code(s): 31693784 Code(s): R45.1 - RESTLESSNESS AND AGITATION Status: Acute Current Visit: Yes - Problem List Review Problem List Initiated/Reviewed/Updated: Yes - My Orders Last 24 Hours: My Active Orders 05/30/17 20:37 Communication Order [RC] PER UNIT ROUTINE Oxygen Therapy [RC] PRN VTE/DVT Education [RC] PER UNIT ROUTINE Vital Signs [RC] Q4H Acetaminophen [Tylenol] 325 mg PO Q4H PRN LORazepam [Ativan] 1 mg IVPUSH Q4H PRN Morphine 2 mg IVPUSH Q2H PRN Ondansetron [Zofran ODT] 4 mg PO Q4H PRN Sodium Chloride 0.9% [Saline Flush] 10 ml FLUSH ASDIRECTED PRN Sodium Chloride 0.9% [Saline Flush] 2.5 ml FLUSH ASDIRECTED PRN Temazepam [Restoril] 15 mg PO BEDTIME PRN Saline Lock Insert [OM.PC] Routine Resuscitation Status Routine 05/30/17 21:00 Docusate Sodium [Colace] 100 mg PO BID Latanoprost [Xalatan 0.005% Ophth Soln] 0 ml EYEBOTH BEDTIME Metoprolol Tartrate [Lopressor] 150 mg PO BID PARoxetine [Paxil] 10 mg PO BID Patient's Own Medication [Ptom] 1 each EYEBOTH BID Piperacillin/Tazobactam [Piperacil-Tazobact] 3.375 gm Sodium Chloride 0.9% [ Normal Saline] 50 ml IV Q6H QUEtiapine [SEROquel] 50 mg PO BEDTIME Warfarin [Coumadin] 5 mg PO SUTUWETHSA@2100 atorvaSTATin [Lipitor] 40 mg PO BEDTIME 05/30/17 [place] [employer] Diet [DIET] 05/31/17 08:00 Glimepiride [Amaryl] 2 mg PO WITHBREAKFAST 05/31/17 09:00 Aspirin 81 mg PO DAILY Digoxin [Lanoxin] 125 mcg PO DAILY Diltiazem [Cardizem CD] 120 mg PO DAILY buPROPion [Wellbutrin XL] 150 mg PO DAILY 05/31/17 09:07 Magnesium Sulfate/Water [Magnesium Sulfate 2 GM in Water 50 ML] 2 gm Premix Bag 1 bag IV ONETIME 05/31/17 09:37 DIGOXIN [CHEM] Routine 05/31/17 21:00 Warfarin [Coumadin] 2.5 mg PO MOFR@2100 06/01/17 05:11 BASIC METABOLIC PANEL,BMP [CHEM] AM CBC WITH AUTO DIFF [HEME] AM INR,PT,PROTHROMBIN TIME [COAG] AM MAGNESIUM [CHEM] AM 06/02/17 05:11 BASIC METABOLIC PANEL,BMP [CHEM] AM CBC WITH AUTO DIFF [HEME] AM INR,PT,PROTHROMBIN TIME [COAG] AM MAGNESIUM [CHEM] AM 06/03/17 05:11 MAGNESIUM [CHEM] AM - Plan Plan:: admit see orders I discussed resuscitation status with his and daughter. They state that he has had DNR in the past and this is their current wish. Italo VIEYRA 05/31/2017 improving considering Ubly for Saturday. His is thinking about it. continue antibiotics PT consult gait training Teddy Mota MD
--- NOTE | 2017-05-31 10:39 | CT ---
EXAM DATE: 05/30/17 PATIENT'S AGE: 81 Patient: ROSELYN MELISSA Facility: [place], [place] Site . Site : 1935 Study: CT Head [id number]/13/2017 6:12:45 PM Ordering Physician: Doctor Rodriguez Final Report: INDICATION: Altered mental status. TECHNIQUE: CT Head without contrast. COMPARISON: 01/23/2017. FINDINGS: Cerebral atrophy. Ill-defined low attenuation in the periventricular and subcortical white matter. No mass effect or midline shift. No hydrocephalus. No CT evidence of acute hemorrhage or infarction. No abnormal extra-axial fluid collection. Intracranial atherosclerosis. Bone windows show no acute abnormality. Visualized orbits and paranasal sinuses are unremarkable. IMPRESSION: No acute intracranial abnormality. 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 Dictated by: Vamsi Estrada MD @ 05/30/2017 18:27:50 (Electronic Signature) Report Signed by Proxy. [facility]
--- NOTE | 2017-05-31 10:40 | CR ---
EXAM DATE: 05/30/17 PATIENT'S AGE: 81 Patient: ROSELYN MELISSA Facility: [place], [place] Site . Site : 1935 Study: XRay Chest [id number]/13/[id number] 6:15:19 PM Ordering Physician: Doctor Rodriguez Final Report: INDICATIONS: Altered mental status. TECHNIQUE: Chest 2 view. COMPARISON: 01/21/2017. FINDINGS: Patient is slightly rotated to the right. Intracardiac device appears unchanged. No pneumothorax, pleural effusion or airspace consolidation. Cardiac and mediastinal contours are stable. No pulmonary edema. Upper abdomen and osseous structures show no acute abnormality. IMPRESSION: No evidence of acute cardiopulmonary disease. Dictated by Vamsi Estrada MD @ 05/30/2017 6:30:22 PM Dictated by: Vamsi Estrada MD @ 05/30/2017 18:30:28 (Electronic Signature) Report Signed by Proxy. [facility]
[2017-05-31] MEDS ORDERED: Warfarin 2.5 MG Tab PO SCH (21:00)
[2017-05-31] MEDS: Temazepam 15 MG Cap PO PRN (21:21)
[2017-05-31] MEDS: atorvaSTATin 40 MG Tab PO SCH (21:24)
[2017-05-31] MEDS: QUEtiapine 100 MG Tab PO SCH (21:24)
[2017-05-31] MEDS: Latanoprost 0.005% Ophth Soln 2.5 ML Bottle EYEBOTH SCH (21:53)
[2017-05-31] MEDS: Triamcinolone Acetonide 0.1% Crm 80 GM Tube TOP SCH (22:44)
[2017-06-01] MEDS: Piperacillin/Tazobactam 3.375 GM in Sodium Chloride 0.9% 50 ML IV SCH ×4 (05:27→22:58)
[2017-06-01 07:12] LABS: CHLORIDE,CL 104 mmol/L (98-110); SODIUM,NA 138 mmol/L (136-146)
[2017-06-01] MEDS: Triamcinolone Acetonide 0.1% Crm 80 GM Tube TOP SCH ×3 (07:26→21:31)
[2017-06-01] MEDS ORDERED: Magnesium Sulfate/Water 2 GM in Premix Bag 1 BAG IV ONE (08:15)
[2017-06-01] MEDS: Aspirin 81 MG Tab.Chew PO SCH (08:34)
[2017-06-01] MEDS: Docusate Sodium 100 MG Cap PO SCH ×2 (08:34→21:16)
[2017-06-01] MEDS: buPROPion 150 MG Tab.ER PO SCH (08:34)
[2017-06-01] MEDS: Metoprolol Tartrate 50 MG Tab PO SCH ×2 (08:34→21:16)
[2017-06-01] MEDS: Glimepiride 2 MG Tab PO SCH (08:35)
[2017-06-01] MEDS: Digoxin 125 MCG Tab PO SCH (08:35)
[2017-06-01] MEDS: PARoxetine 20 MG Tab PO SCH ×2 (08:35→21:31)
[2017-06-01] MEDS: BRIMONIDINE TARTRATE EYEBOTH SCH ×2 (08:39→21:15)
--- NOTE | 2017-06-01 09:23 | PCM.PN ---
- General Info Date of Service: 06/01/17 Functional Status: Reports: tolerating diet, ambulating - Review of Systems General: Reports: No Symptoms HEENT: Reports: no symptoms Pulmonary: Reports: no symptoms Cardiovascular: Reports: No Symptoms Gastrointestinal: Reports: No symptoms Genitourinary: Reports: no symptoms Musculoskeletal: Reports: no symptoms Skin: Reports: no symptoms Neurological: Reports: No Symptoms Psychiatric: Reports: no symptoms - Patient Data Vitals - most recent: Last Vital Signs Temp 98.2 F 06/01/17 04:00 Pulse 68 06/01/17 08:35 Resp 18 06/01/17 04:00 BP 118/53 L 06/01/17 08:34 Pulse Ox 93 L 06/01/17 04:00 Weight - most recent: 116.6 kg I&O - last 24 hours: Intake & Output 05/31/17 06/01/17 06/01/17 22:59 06:59 14:59 Intake Total 1850 1200 50 Output Total 650 550 Balance 1200 650 50 Lab Results last 24 hrs: Laboratory Results - last 24 hr 05/31/17 05/31/17 06/01/17 Range/Units 09:37 11:37 06:30 WBC 11.65 H (4.0-11.0) K/uL RBC 4.26 L (4.50-5.90) M/uL Hgb 13.0 (13.0-17.0) g/dL Hct 39.1 (38.0-50.0) % MCV 91.8 (80.0-98.0) fL MCH 30.5 (27.0-32.0) pg MCHC 33.2 (31.0-37.0) g/dL RDW Std Deviation 46.3 (28.0-62.0) fl RDW Coeff of Yancy 14 (11.0-15.0) % Plt Count 259 (150-400) K/uL MPV 10.50 (7.40-12.00) fL Neut % (Auto) 72.4 (48.0-80.0) % Lymph % (Auto) 15.8 L (16.0-40.0) % Bonner % (Auto) 9.3 (0.0-15.0) % Eos % (Auto) 2.2 (0.0-7.0) % Baso % (Auto) 0.3 (0.0-1.5) % Neut # (Auto) 8.4 H (1.4-5.7) K/uL Lymph # (Auto) 1.8 (0.6-2.4) K/uL Bonner # (Auto) 1.1 H (0.0-0.8) K/uL Eos # (Auto) 0.3 (0.0-0.7) K/uL Baso # (Auto) 0.0 (0.0-0.1) K/uL Nucleated RBC % 0.0 /100WBC Nucleated RBCs # 0 K/uL INR (0.86-1.11) Sodium (136-146) mmol/L Potassium (3.5-5.1) mmol/L Chloride (98-110) mmol/L Carbon Dioxide (21-31) mmol/L BUN (6.0-23.0) mg/dL Creatinine (0.6-1.5) mg/dL Est Cr Clr Drug Dosing mL/min Estimated GFR (MDRD) ml/min Glucose (60-110) mg/dL POC Glucose 140 H (60-110) mg/dL Calcium (8.8-10.8) mg/dL Magnesium (1.5-2.3) mEq/L Digoxin 1.15 (0.8-2.0) ng/mL 06/01/17 06/01/17 Range/Units 06:30 06:30 WBC (4.0-11.0) K/uL RBC (4.50-5.90) M/uL Hgb (13.0-17.0) g/dL Hct (38.0-50.0) % MCV (80.0-98.0) fL MCH (27.0-32.0) pg MCHC (31.0-37.0) g/dL RDW Std Deviation (28.0-62.0) fl RDW Coeff of Yancy (11.0-15.0) % Plt Count (150-400) K/uL MPV (7.40-12.00) fL Neut % (Auto) (48.0-80.0) % Lymph % (Auto) (16.0-40.0) % Bonner % (Auto) (0.0-15.0) % Eos % (Auto) (0.0-7.0) % Baso % (Auto) (0.0-1.5) % Neut # (Auto) (1.4-5.7) K/uL Lymph # (Auto) (0.6-2.4) K/uL Bonner # (Auto) (0.0-0.8) K/uL Eos # (Auto) (0.0-0.7) K/uL Baso # (Auto) (0.0-0.1) K/uL Nucleated RBC % /100WBC Nucleated RBCs # K/uL INR 3.49 H (0.86-1.11) Sodium 138 (136-146) mmol/L Potassium 3.4 L (3.5-5.1) mmol/L Chloride 104 (98-110) mmol/L Carbon Dioxide 25 (21-31) mmol/L BUN 14 (6.0-23.0) mg/dL Creatinine 1.0 (0.6-1.5) mg/dL Est Cr Clr Drug Dosing 61.85 mL/min Estimated GFR (MDRD) > 60.0 ml/min Glucose 135 H (60-110) mg/dL POC Glucose (60-110) mg/dL Calcium 8.5 L (8.8-10.8) mg/dL Magnesium 1.4 L (1.5-2.3) mEq/L Digoxin (0.8-2.0) ng/mL Med Orders - Current: Current Medications Acetaminophen (Tylenol) 325 mg PO Q4H PRN PRN Reason: Pain (Mild 1-3)/fever Aspirin (Aspirin) 81 mg PO DAILY [facility] Last Admin: 06/01/17 08:34 Dose: 81 mg Atorvastatin Calcium (Lipitor) 40 mg PO BEDTIME [facility] Last Admin: 05/31/17 21:24 Dose: 40 mg Bupropion HCl (Wellbutrin Xl) 150 mg PO DAILY [facility] Last Admin: 06/01/17 08:34 Dose: 150 mg Digoxin (Lanoxin) 125 mcg PO DAILY [facility] Last Admin: 06/01/17 08:35 Dose: 125 mcg Diltiazem HCl (Cardizem Cd) 120 mg PO DAILY [facility] Last Admin: 05/31/17 08:52 Dose: 120 mg Docusate Sodium (Colace) 100 mg PO BID [facility] Last Admin: 06/01/17 08:34 Dose: 100 mg Glimepiride (Amaryl) 2 mg PO WITHBREAKFAST [facility] Last Admin: 06/01/17 08:35 Dose: 2 mg Piperacillin Sod/Tazobactam (Sod 3.375 gm/ Sodium Chloride) 50 mls @ 100 mls/ hr IV Q6H [facility] Last Admin: 06/01/17 05:27 Dose: 100 mls/hr Latanoprost (Xalatan 0.005% Ophth Soln) 0 ml EYEBOTH BEDTIME [facility] Last Admin: 05/31/17 21:53 Dose: 1 drop Lorazepam (Ativan) 1 mg IVPUSH Q4H PRN PRN Reason: Anxiety Metoprolol Tartrate (Lopressor) 150 mg PO BID [facility] Last Admin: 06/01/17 08:34 Dose: 150 mg Ondansetron HCl (Zofran Odt) 4 mg PO Q4H PRN PRN Reason: nausea, able to take PO Paroxetine HCl (Paxil) 10 mg PO BID [facility] Last Admin: 06/01/17 08:35 Dose: 10 mg Brimonidine Tartrate (1 Drop) 1 each EYEBOTH BID [facility] Last Admin: 06/01/17 08:39 Dose: 1 each Potassium Chloride (Potassium Chloride) 40 meq PO DAILY [facility] Quetiapine Fumarate (Seroquel) 100 mg PO BEDTIME [facility] Last Admin: 05/31/17 21:24 Dose: 100 mg Sodium Chloride (Saline Flush) 10 ml FLUSH ASDIRECTED PRN PRN Reason: Keep Vein Open Sodium Chloride (Saline Flush) 2.5 ml FLUSH ASDIRECTED PRN PRN Reason: Keep Vein Open Temazepam (Restoril) 15 mg PO BEDTIME PRN PRN Reason: Sleep Last Admin: 05/31/17 21:21 Dose: 15 mg Triamcinolone Acetonide (Kenalog 0.1% Crm) 0 gm TOP TID [facility] Last Admin: 06/01/17 07:26 Dose: 1 applic Warfarin Sodium (Coumadin) 2.5 mg PO SuMoWeFr@2100 [facility] Warfarin Sodium (Coumadin) 5 mg PO TuThSa@2100 [facility] Discontinued Medications Piperacillin Sod/Tazobactam (Sod 3.375 gm/ Sodium Chloride) 50 mls @ 100 mls/ hr IV Q6H [facility] Last Admin: 05/31/17 10:09 Dose: Not Given Magnesium Sulfate 2 gm/ Premix 50 mls @ 50 mls/hr IV ONETIME ONE Stop: 05/31/17 10:06 Last Admin: 05/31/17 09:58 Dose: 50 mls/hr Magnesium Sulfate 2 gm/ Premix 50 mls @ 50 mls/hr IV ONETIME ONE Stop: 06/01/17 09:14 Last Admin: 06/01/17 08:30 Dose: 50 mls/hr Morphine Sulfate (Morphine) 2 mg IVPUSH Q2H PRN PRN Reason: Pain (severe 7-10) Stop: 05/31/17 20:39 Quetiapine Fumarate (Seroquel) 50 mg PO BEDTIME [facility] Last Admin: 05/30/17 22:00 Dose: 50 mg Warfarin Sodium (Coumadin) 2.5 mg PO MOFR@2100 [facility] Last Admin: 05/31/17 21:24 Dose: 2.5 mg Warfarin Sodium (Coumadin) 5 mg PO SUTUWETHSA@2100 [facility] Last Admin: 05/30/17 23:50 Dose: 5 mg - Exam General: alert, oriented HEENT: Pupils equal, EOMI Neck: supple, trachea midline Lungs: Decreased breath sounds Cardiovascular: Regular Rate, Regular Rhythm Abdomen: bowel sounds present, soft (Male) Exam: Other (castro draining yellow urine) Back Exam: Normal Inspection Extremities: no edema Skin: warm, dry, intact Neurological: no new focal deficit Psy/Mental Status: alert, normal affect, normal mood - Problem List Review Problem List Initiated/Reviewed/Updated: Yes - My Orders Last 24 Hours: My Active Orders 06/01/17 09:00 Potassium Chloride 40 meq PO DAILY - Plan Plan:: admit see orders I discussed resuscitation status with his and daughter. They state that he has had DNR in the past and this is their current wish. Italo VIEYRA 05/31/2017 improving considering [place] for Saturday. His is thinking about it. continue antibiotics PT consult gait training Teddy Mota MD 06/01/17 continue zosyn physical therapy anticipate discharge 1-2 days
[2017-06-01] MEDS: Potassium Chloride 10% 20 MEQ/15 ML Soln 30 ML UD Cup PO SCH (09:50)
[2017-06-01] MEDS: Diltiazem 120 MG Cap.CD PO SCH (09:50)
[2017-06-01] MEDS: QUEtiapine 100 MG Tab PO SCH (21:16)
[2017-06-01] MEDS: atorvaSTATin 40 MG Tab PO SCH (21:16)
[2017-06-01] MEDS: Latanoprost 0.005% Ophth Soln 2.5 ML Bottle EYEBOTH SCH (21:31)
[2017-06-01] MEDS: Temazepam 15 MG Cap PO PRN (23:07)
[2017-06-02] MEDS: Piperacillin/Tazobactam 3.375 GM in Sodium Chloride 0.9% 50 ML IV SCH ×4 (04:46→22:23)
[2017-06-02] MEDS: Triamcinolone Acetonide 0.1% Crm 80 GM Tube TOP SCH ×3 (05:24→21:37)
[2017-06-02 06:17] LABS: CHLORIDE,CL 106 mmol/L (98-110); SODIUM,NA 138 mmol/L (136-146)
[2017-06-02] MEDS: Docusate Sodium 100 MG Cap PO SCH ×2 (08:15→21:27)
[2017-06-02] MEDS: Aspirin 81 MG Tab.Chew PO SCH (08:15)
[2017-06-02] MEDS: Glimepiride 2 MG Tab PO SCH (08:15)
[2017-06-02] MEDS: Diltiazem 120 MG Cap.CD PO SCH (08:15)
[2017-06-02] MEDS: buPROPion 150 MG Tab.ER PO SCH (08:16)
[2017-06-02] MEDS: PARoxetine 20 MG Tab PO SCH ×2 (08:16→20:55)
[2017-06-02] MEDS: Digoxin 125 MCG Tab PO SCH (08:16)
[2017-06-02] MEDS: Metoprolol Tartrate 50 MG Tab PO SCH ×2 (08:17→20:54)
[2017-06-02] MEDS: BRIMONIDINE TARTRATE EYEBOTH SCH ×2 (08:18→20:51)
[2017-06-02] MEDS: Potassium Chloride 10% 20 MEQ/15 ML Soln 30 ML UD Cup PO SCH (08:18)
--- NOTE | 2017-06-02 13:35 | PCM.PN ---
- General Info Date of Service: 06/02/17 Subjective Update: feeling better. He is able to ambulate with one person stand by as per nursing notes. - Patient Data Vitals - most recent: Last Vital Signs Temp 96.8 F 06/02/17 11:40 Pulse 69 06/02/17 11:40 Resp 18 06/02/17 11:40 BP 123/61 06/02/17 11:40 Pulse Ox 93 L 06/02/17 11:40 Weight - most recent: 116.6 kg I&O - last 24 hours: Intake & Output 06/01/17 06/02/17 06/02/17 22:59 06:59 14:59 Intake Total 1570 800 50 Output Total 500 1000 Balance 1070 -200 50 Lab Results last 24 hrs: Laboratory Results - last 24 hr 06/02/17 06/02/17 06/02/17 Range/Units 05:14 05:41 05:41 WBC 10.57 (4.0-11.0) K/uL RBC 4.35 L (4.50-5.90) M/uL Hgb 13.1 (13.0-17.0) g/dL Hct 39.8 (38.0-50.0) % MCV 91.5 (80.0-98.0) fL MCH 30.1 (27.0-32.0) pg MCHC 32.9 (31.0-37.0) g/dL RDW Std Deviation 46.2 (28.0-62.0) fl RDW Coeff of Yancy 14 (11.0-15.0) % Plt Count 289 (150-400) K/uL MPV 10.30 (7.40-12.00) fL Neut % (Auto) 71.7 (48.0-80.0) % Lymph % (Auto) 15.8 L (16.0-40.0) % Schleicher % (Auto) 9.3 (0.0-15.0) % Eos % (Auto) 3.0 (0.0-7.0) % Baso % (Auto) 0.2 (0.0-1.5) % Neut # (Auto) 7.6 H (1.4-5.7) K/uL Lymph # (Auto) 1.7 (0.6-2.4) K/uL Schleicher # (Auto) 1.0 H (0.0-0.8) K/uL Eos # (Auto) 0.3 (0.0-0.7) K/uL Baso # (Auto) 0.0 (0.0-0.1) K/uL Nucleated RBC % 0.0 /100WBC Nucleated RBCs # 0 K/uL INR 4.62 H (0.86-1.11) Sodium 138 (136-146) mmol/L Potassium 3.7 (3.5-5.1) mmol/L Chloride 106 (98-110) mmol/L Carbon Dioxide 24 (21-31) mmol/L BUN 12 (6.0-23.0) mg/dL Creatinine 1.1 (0.6-1.5) mg/dL Est Cr Clr Drug Dosing 56.22 mL/min Estimated GFR (MDRD) > 60.0 ml/min Glucose 128 H (60-110) mg/dL Calcium 8.5 L (8.8-10.8) mg/dL Magnesium 1.5 (1.5-2.3) mEq/L Med Orders - Current: Current Medications Acetaminophen (Tylenol) 325 mg PO Q4H PRN PRN Reason: Pain (Mild 1-3)/fever Aspirin (Aspirin) 81 mg PO DAILY [facility] Last Admin: 06/02/17 08:15 Dose: 81 mg Atorvastatin Calcium (Lipitor) 40 mg PO BEDTIME [facility] Last Admin: 06/01/17 21:16 Dose: 40 mg Bupropion HCl (Wellbutrin Xl) 150 mg PO DAILY [facility] Last Admin: 06/02/17 08:16 Dose: 150 mg Digoxin (Lanoxin) 125 mcg PO DAILY [facility] Last Admin: 06/02/17 08:16 Dose: 125 mcg Diltiazem HCl (Cardizem Cd) 120 mg PO DAILY [facility] Last Admin: 06/02/17 08:15 Dose: 120 mg Docusate Sodium (Colace) 100 mg PO BID [facility] Last Admin: 06/02/17 08:15 Dose: 100 mg Glimepiride (Amaryl) 2 mg PO WITHBREAKFAST [facility] Last Admin: 06/02/17 08:15 Dose: 2 mg Piperacillin Sod/Tazobactam (Sod 3.375 gm/ Sodium Chloride) 50 mls @ 100 mls/ hr IV Q6H [facility] Last Admin: 06/02/17 10:14 Dose: 100 mls/hr Latanoprost (Xalatan 0.005% Ophth Soln) 0 ml EYEBOTH BEDTIME [facility] Last Admin: 06/01/17 21:31 Dose: 1 drop Lorazepam (Ativan) 1 mg IVPUSH Q4H PRN PRN Reason: Anxiety Metoprolol Tartrate (Lopressor) 150 mg PO BID [facility] Last Admin: 06/02/17 08:17 Dose: 150 mg Ondansetron HCl (Zofran Odt) 4 mg PO Q4H PRN PRN Reason: nausea, able to take PO Paroxetine HCl (Paxil) 10 mg PO BID [facility] Last Admin: 06/02/17 08:16 Dose: 10 mg Brimonidine Tartrate (1 Drop) 1 each EYEBOTH BID [facility] Last Admin: 06/02/17 08:18 Dose: 1 each Potassium Chloride (Potassium Chloride) 40 meq PO DAILY [facility] Last Admin: 06/02/17 08:18 Dose: 40 meq Quetiapine Fumarate (Seroquel) 100 mg PO BEDTIME [facility] Last Admin: 06/01/17 21:16 Dose: 100 mg Sodium Chloride (Saline Flush) 10 ml FLUSH ASDIRECTED PRN PRN Reason: Keep Vein Open Sodium Chloride (Saline Flush) 2.5 ml FLUSH ASDIRECTED PRN PRN Reason: Keep Vein Open Temazepam (Restoril) 15 mg PO BEDTIME PRN PRN Reason: Sleep Last Admin: 06/01/17 23:07 Dose: 15 mg Triamcinolone Acetonide (Kenalog 0.1% Crm) 0 gm TOP TID [facility] Last Admin: 06/02/17 13:04 Dose: 1 applic Warfarin Sodium (Coumadin) 2.5 mg PO SuMoWeFr@2100 [facility] Warfarin Sodium (Coumadin) 5 mg PO TuThSa@2100 [facility] Discontinued Medications Piperacillin Sod/Tazobactam (Sod 3.375 gm/ Sodium Chloride) 50 mls @ 100 mls/ hr IV Q6H [facility] Last Admin: 05/31/17 10:09 Dose: Not Given Magnesium Sulfate 2 gm/ Premix 50 mls @ 50 mls/hr IV ONETIME ONE Stop: 05/31/17 10:06 Last Admin: 05/31/17 09:58 Dose: 50 mls/hr Magnesium Sulfate 2 gm/ Premix 50 mls @ 50 mls/hr IV ONETIME ONE Stop: 06/01/17 09:14 Last Admin: 06/01/17 08:30 Dose: 50 mls/hr Morphine Sulfate (Morphine) 2 mg IVPUSH Q2H PRN PRN Reason: Pain (severe 7-10) Stop: 05/31/17 20:39 Quetiapine Fumarate (Seroquel) 50 mg PO BEDTIME [facility] Last Admin: 05/30/17 22:00 Dose: 50 mg Warfarin Sodium (Coumadin) 2.5 mg PO MOFR@2099 [facility] Last Admin: 05/31/17 21:24 Dose: 2.5 mg Warfarin Sodium (Coumadin) 5 mg PO SUTUWETHSA@2100 [facility] Last Admin: 05/30/17 23:50 Dose: 5 mg - Exam General: alert, cooperative, other (he cannot tell me what year we are in) Lungs: Clear to auscultation, Normal respiratory effort Cardiovascular: Regular Rate, Regular Rhythm Abdomen: soft, no tenderness - Problem List & Annotations (1) Sepsis SNOMED Code(s): 09614318 Code(s): A41.9 - SEPSIS, UNSPECIFIED ORGANISM Status: Acute Current Visit : Yes (2) Leukocytosis SNOMED Code(s): 863301172, 465962453 Code(s): D72.829 - ELEVATED WHITE BLOOD CELL COUNT, UNSPECIFIED Status: Acute Current Visit: Yes (3) Atrial fibrillation SNOMED Code(s): 30864776 Code(s): I48.91 - UNSPECIFIED ATRIAL FIBRILLATION Status: Acute Current Visit: No (4) History of COPD SNOMED Code(s): 285277197 Code(s): Z87.09 - PERSONAL HISTORY OF OTHER DISEASES OF THE RESPIRATORY SYSTEM Status: Acute Current Visit: Yes (5) Dementia SNOMED Code(s): 97619970 Code(s): F03.90 - UNSPECIFIED DEMENTIA WITHOUT BEHAVIORAL DISTURBANCE Status: Acute Current Visit: Yes (6) Agitation SNOMED Code(s): 77941131 Code(s): R45.1 - RESTLESSNESS AND AGITATION Status: Acute Current Visit: Yes - Problem List Review Problem List Initiated/Reviewed/Updated: Yes - My Orders Last 24 Hours: My Active Orders 06/02/17 21:00 Warfarin [Coumadin] 2.5 mg PO SuMoWeFr@2100 06/03/17 05:11 MAGNESIUM [CHEM] AM 06/04/17 21:00 Warfarin [Coumadin] 5 mg PO TuThSa@2099 - Plan Plan:: admit see orders I discussed resuscitation status with his and daughter. They state that he has had DNR in the past and this is their current wish. Italo VIEYRA 05/31/2017 improving considering [place] for Saturday. His is thinking about it. continue antibiotics PT consult gait training Teddy Mota MD 06/01/17 continue [facility] physical therapy anticipate discharge 1-2 days discharge [place] in am warfarin being held for elevated INR Teddy Mota MD
[2017-06-02] MEDS: QUEtiapine 100 MG Tab PO SCH (20:55)
[2017-06-02] MEDS: atorvaSTATin 40 MG Tab PO SCH (20:55)
[2017-06-02] MEDS: Latanoprost 0.005% Ophth Soln 2.5 ML Bottle EYEBOTH SCH (20:56)
[2017-06-02] MEDS ORDERED: Warfarin 2.5 MG Tab PO SCH (21:00)
[2017-06-03] MEDS: Piperacillin/Tazobactam 3.375 GM in Sodium Chloride 0.9% 50 ML IV SCH ×4 (04:45→22:37)
[2017-06-03] MEDS: Triamcinolone Acetonide 0.1% Crm 80 GM Tube TOP SCH ×3 (05:10→21:18)
[2017-06-03] MEDS: Digoxin 125 MCG Tab PO SCH (08:03)
[2017-06-03] MEDS: Glimepiride 2 MG Tab PO SCH (08:03)
[2017-06-03] MEDS: buPROPion 150 MG Tab.ER PO SCH (08:03)
[2017-06-03] MEDS: Potassium Chloride 10% 20 MEQ/15 ML Soln 30 ML UD Cup PO SCH (08:03)
[2017-06-03] MEDS: Docusate Sodium 100 MG Cap PO SCH ×2 (08:04→20:19)
[2017-06-03] MEDS: Diltiazem 120 MG Cap.CD PO SCH (08:04)
[2017-06-03] MEDS: Aspirin 81 MG Tab.Chew PO SCH (08:04)
[2017-06-03] MEDS: BRIMONIDINE TARTRATE EYEBOTH SCH ×2 (08:04→20:18)
[2017-06-03] MEDS: Metoprolol Tartrate 50 MG Tab PO SCH ×2 (08:04→20:20)
[2017-06-03] MEDS: PARoxetine 20 MG Tab PO SCH ×2 (08:04→20:20)
--- NOTE | 2017-06-03 09:28 | PCM.PN ---
- General Info Date of Service: 06/03/17 Subjective Update: elevated INR otherwise tolerating diet Functional Status: Reports: tolerating diet, ambulating, urinating - Review of Systems General: Reports: No Symptoms HEENT: Reports: no symptoms Pulmonary: Reports: no symptoms Cardiovascular: Reports: No Symptoms Gastrointestinal: Reports: No symptoms Musculoskeletal: Reports: no symptoms Skin: Reports: no symptoms Neurological: Reports: No Symptoms Psychiatric: Reports: no symptoms - Patient Data Vitals - most recent: Last Vital Signs Temp 96.5 F 06/03/17 08:00 Pulse 68 06/03/17 08:04 Resp 16 06/03/17 08:00 BP 139/71 06/03/17 08:04 Pulse Ox 95 06/03/17 08:00 Weight - most recent: 116.6 kg I&O - last 24 hours: Intake & Output 06/02/17 06/03/17 06/03/17 22:59 06:59 14:59 Intake Total 1040 750 Output Total 950 1950 Balance 90 -1200 Lab Results last 24 hrs: Laboratory Results - last 24 hr 06/03/17 06/03/17 Range/Units 06:02 06:02 INR 3.87 H (0.86-1.11) Magnesium 1.7 (1.5-2.3) mEq/L Med Orders - Current: Current Medications Acetaminophen (Tylenol) 325 mg PO Q4H PRN PRN Reason: Pain (Mild 1-3)/fever Aspirin (Aspirin) 81 mg PO DAILY [facility] Last Admin: 06/03/17 08:04 Dose: 81 mg Atorvastatin Calcium (Lipitor) 40 mg PO BEDTIME [facility] Last Admin: 06/02/17 20:55 Dose: 40 mg Bupropion HCl (Wellbutrin Xl) 150 mg PO DAILY [facility] Last Admin: 06/03/17 08:03 Dose: 150 mg Digoxin (Lanoxin) 125 mcg PO DAILY [facility] Last Admin: 06/03/17 08:03 Dose: 125 mcg Diltiazem HCl (Cardizem Cd) 120 mg PO DAILY [facility] Last Admin: 06/03/17 08:04 Dose: 120 mg Docusate Sodium (Colace) 100 mg PO BID [facility] Last Admin: 06/03/17 08:04 Dose: 100 mg Glimepiride (Amaryl) 2 mg PO WITHBREAKFAST [facility] Last Admin: 06/03/17 08:03 Dose: 2 mg Piperacillin Sod/Tazobactam (Sod 3.375 gm/ Sodium Chloride) 50 mls @ 100 mls/ hr IV Q6H [facility] Last Admin: 06/03/17 04:45 Dose: 100 mls/hr Latanoprost (Xalatan 0.005% Ophth Soln) 0 ml EYEBOTH BEDTIME [facility] Last Admin: 06/02/17 20:56 Dose: 1 drop Lorazepam (Ativan) 1 mg IVPUSH Q4H PRN PRN Reason: Anxiety Metoprolol Tartrate (Lopressor) 150 mg PO BID [facility] Last Admin: 06/03/17 08:04 Dose: 150 mg Ondansetron HCl (Zofran Odt) 4 mg PO Q4H PRN PRN Reason: nausea, able to take PO Paroxetine HCl (Paxil) 10 mg PO BID [facility] Last Admin: 06/03/17 08:04 Dose: 10 mg Brimonidine Tartrate (1 Drop) 1 each EYEBOTH BID [facility] Last Admin: 06/03/17 08:04 Dose: 1 each Potassium Chloride (Potassium Chloride) 40 meq PO DAILY [facility] Last Admin: 06/03/17 08:03 Dose: 40 meq Quetiapine Fumarate (Seroquel) 100 mg PO BEDTIME [facility] Last Admin: 06/02/17 20:55 Dose: 100 mg Sodium Chloride (Saline Flush) 10 ml FLUSH ASDIRECTED PRN PRN Reason: Keep Vein Open Sodium Chloride (Saline Flush) 2.5 ml FLUSH ASDIRECTED PRN PRN Reason: Keep Vein Open Temazepam (Restoril) 15 mg PO BEDTIME PRN PRN Reason: Sleep Last Admin: 06/01/17 23:07 Dose: 15 mg Triamcinolone Acetonide (Kenalog 0.1% Crm) 0 gm TOP TID [facility] Last Admin: 06/03/17 05:10 Dose: 1 applic Warfarin Sodium (Coumadin) 2.5 mg PO SuMoWeFr@2100 [facility] Warfarin Sodium (Coumadin) 5 mg PO TuThSa@2100 [facility] Discontinued Medications Piperacillin Sod/Tazobactam (Sod 3.375 gm/ Sodium Chloride) 50 mls @ 100 mls/ hr IV Q6H [facility] Last Admin: 05/31/17 10:09 Dose: Not Given Magnesium Sulfate 2 gm/ Premix 50 mls @ 50 mls/hr IV ONETIME ONE Stop: 05/31/17 10:06 Last Admin: 05/31/17 09:58 Dose: 50 mls/hr Magnesium Sulfate 2 gm/ Premix 50 mls @ 50 mls/hr IV ONETIME ONE Stop: 06/01/17 09:14 Last Admin: 06/01/17 08:30 Dose: 50 mls/hr Morphine Sulfate (Morphine) 2 mg IVPUSH Q2H PRN PRN Reason: Pain (severe 7-10) Stop: 05/31/17 20:39 Quetiapine Fumarate (Seroquel) 50 mg PO BEDTIME [facility] Last Admin: 05/30/17 22:00 Dose: 50 mg Warfarin Sodium (Coumadin) 2.5 mg PO MOFR@2100 [facility] Last Admin: 05/31/17 21:24 Dose: 2.5 mg Warfarin Sodium (Coumadin) 5 mg PO SUTUWETHSA@2100 [facility] Last Admin: 05/30/17 23:50 Dose: 5 mg - Exam General: alert, oriented, cooperative HEENT: Pupils equal, EOMI Neck: supple, trachea midline Lungs: Decreased breath sounds Cardiovascular: Regular Rate, Regular Rhythm (Male) Exam: Other (Gandhi: yellow urine ) Back Exam: Normal Inspection Extremities: edema Skin: warm, dry, intact. No: ecchymosis Neurological: no new focal deficit Psy/Mental Status: alert, normal affect, normal mood - Problem List Review Problem List Initiated/Reviewed/Updated: Yes - Plan Plan:: admit see orders I discussed resuscitation status with his and daughter. They state that he has had DNR in the past and this is their current wish. [place] VIEYRA 05/31/2017 improving considering [place] for Saturday. His is thinking about it. continue antibiotics PT consult gait training Teddy Mota MD 06/01/17 continue [facility] physical therapy anticipate discharge 1-2 days discharge [place] in am warfarin being held for elevated INR Teddy Mota MD 06/03/17 Elevated INR 3.87: warfarin held and dosage was decreased. No symptoms of bleeding. anticipate discharge to [place] tomorrow.
--- NOTE | 2017-06-03 09:48 | CR ---
EXAM DATE: 05/30/17 PATIENT'S AGE: 81 Patient: ROSELYN MELISSA Facility: [place], [place] Site . Site : 1935 Study: XRay Hip Bilateral w/ pelvis [id number]/[id number] 5:02:12 PM Ordering Physician: Nakul Espinal Final Report: INDICATION: falls, hip pain TECHNIQUE: Pelvis radiograph 1 view Hip radiograph 5 views bilateral COMPARISON: None FINDINGS: Bones: Alignment is normal. No acute fractures or aggressive bone lesions identified. The visualized lumbar spine is unremarkable. Joint spaces: The hip joints are unremarkable in appearance. The SI joints are unremarkable. No radiographic evidence of hip effusions are seen. The pubic symphysis is normal in appearance. Soft tissues: EVT stent partially seen in the iliac vessels. The visualized bowel gas pattern is normal. No abnormal calcifications are noted in the pelvis. IMPRESSION: 1. No acute osseous injuries are noted. Dictated by: Dio Bolivar MD @ 05/31/2017 17:07:25 (Electronic Signature) Report Signed by Proxy. ARIES
[2017-06-03] MEDS: atorvaSTATin 40 MG Tab PO SCH (20:19)
[2017-06-03] MEDS: Latanoprost 0.005% Ophth Soln 2.5 ML Bottle EYEBOTH SCH (20:27)
[2017-06-03] MEDS ORDERED: QUEtiapine 100 MG Tab PO SCH (21:00)
[2017-06-04] MEDS: Piperacillin/Tazobactam 3.375 GM in Sodium Chloride 0.9% 50 ML IV SCH ×2 (05:46→10:27)
[2017-06-04] MEDS: Triamcinolone Acetonide 0.1% Crm 80 GM Tube TOP SCH (05:47)
[2017-06-04] MEDS: Potassium Chloride 10% 20 MEQ/15 ML Soln 30 ML UD Cup PO SCH (08:22)
[2017-06-04] MEDS: Diltiazem 120 MG Cap.CD PO SCH (08:23)
[2017-06-04] MEDS: buPROPion 150 MG Tab.ER PO SCH (08:23)
[2017-06-04] MEDS: Metoprolol Tartrate 50 MG Tab PO SCH (08:24)
[2017-06-04] MEDS: Glimepiride 2 MG Tab PO SCH (08:24)
[2017-06-04] MEDS: Digoxin 125 MCG Tab PO SCH (08:24)
[2017-06-04] MEDS: Docusate Sodium 100 MG Cap PO SCH (08:24)
[2017-06-04] MEDS: Aspirin 81 MG Tab.Chew PO SCH (08:24)
[2017-06-04] MEDS: PARoxetine 20 MG Tab PO SCH (08:25)
[2017-06-04] MEDS: BRIMONIDINE TARTRATE EYEBOTH SCH (08:28)
--- NOTE | 2017-06-04 09:08 | PCM.DCSUM1 ---
Discharge Summary - Hospital Course Free Text/Narrative:: 81 yo male history of a-fib, pacemaker, DM2 admitted for UTI. He had fever, chills, memory loss and confusion. He had inability to urinate, castro catheter was placed in ED. Head CT and CXR negative. UA positive. He was treated with zosyn while waiting for sensitivities. urine culture morganella morgani which is sensitive to Bactrim. During hospitalization he had persistent elevated INR around 3. His Coumadin was held. He remained afebrile and discharged in stable condition to [facility]. He may resume his home medications. Warfarin was decreased to 2.5 mg QD since INR was 3 upon discharge. Bactrim DS po bid x 10 days. Castro was taken out. He is able to urinate. He is to follow up with Dr. Gray - Discharge Data Discharge Date: 06/04/17 Discharge Disposition: DC/Tfer to [facility] 03 Condition: Good - Patient Summary/Data Consults: Consultations 05/31/17 10:04 Consult to Physical Therapy [PT Evaluation and Treatment] [CONS] Routine - Discharge Plan Prescriptions/Med Rec: Digoxin [Lanoxin] 125 mcg PO DAILY #30 tablet Sulfamethoxazole/Trimethoprim [Bactrim Ds Tablet] 1 each PO BID #20 tablet Home Medications: Home Meds Albuterol Sulfate [Albuterol Sulfate HFA] 2 inh IH Q6HR PRN 04/19/14 [History] Brimonidine Tartrate [Alphagan P 0.1% Ophth Soln] 1 drop EYEBOTH BID 04/19/14 [ History] Latanoprost [Xalatan 0.005% Ophth Soln] 1 drop EYEBOTH BEDTIME 04/19/14 [History ] PARoxetine HCl [Paroxetine HCl] 10 mg PO BID 04/19/14 [History] atorvaSTATin Calcium [Atorvastatin Calcium] 40 mg PO BEDTIME 04/19/14 [History] Oxybutynin 2.5 mg PO BEDTIME 08/11/16 [History] Diltiazem [Cardizem CD] 120 mg PO DAILY 01/03/17 [History] buPROPion [buPROPion XL] 150 mg PO DAILY 01/04/17 [History] metFORMIN HCl [Metformin HCl] 1,000 mg PO BIDMEALS 01/04/17 [History] QUEtiapine [SEROquel] 50 mg PO BEDTIME 01/23/17 [History] Warfarin [Coumadin] 5 mg PO SUTUWETHSA@209901/23/17 [History] Docusate Sodium 100 mg PO SUTUTH@209905/30/17 [History] Glimepiride [Amaryl] 2 mg PO WITHBREAKFAST 05/30/17 [History] Warfarin [Coumadin] 2.5 mg PO MOFR@209905/30/17 [History] Albuterol [IMW: Albuterol] 2.5 mg IH Q6H PRN 06/03/17 [History] Aspirin [Adult Low Dose Aspirin EC] 81 mg PO DAILY 06/03/17 [History] Calcium Citrate/Vitamin D3 [Calcium Cit-Vit D 250-200] 1 tab PO BID 06/03/17 [ History] Cetirizine [ZyrTEC] 10 mg PO DAILY PRN 06/03/17 [History] Furosemide [Lasix] 20 mg PO DAILY 06/03/17 [History] Gabapentin [Neurontin] 100 mg PO TID 06/03/17 [History] Metoprolol Tartrate [Lopressor] 100 mg PO BID 06/03/17 [History] Multivitamin with Minerals [Multivitamins with Minerals] 1 tab PO DAILY [History] Tamsulosin [Flomax] 0.8 mg PO WITHDINNER 06/03/17 [History] Digoxin [Lanoxin] 125 mcg PO DAILY #30 tablet 06/04/17 [Rx] Sulfamethoxazole/Trimethoprim [Bactrim Ds Tablet] 1 each PO BID #20 tablet 06/04 [Rx] Referrals: Roque Gray MD [Physician] - 06/06/17 (next [facility]) - General Info Date of Service: 06/04/17 Functional Status: Reports: tolerating diet - Review of Systems General: Reports: No Symptoms HEENT: Reports: no symptoms Pulmonary: Reports: no symptoms Cardiovascular: Reports: No Symptoms Gastrointestinal: Reports: No symptoms Genitourinary: Reports: no symptoms, other Musculoskeletal: Reports: no symptoms Skin: Reports: no symptoms Neurological: Reports: No Symptoms Psychiatric: Reports: no symptoms - Patient Data Vitals - Most Recent: Last Vital Signs Temp 96.6 F 06/04/17 07:59 Pulse 70 06/04/17 08:24 Resp 22 H 06/04/17 07:59 BP 144/78 H 06/04/17 08:24 Pulse Ox 94 L 06/04/17 07:59 Weight - Most Recent: 116.6 kg I&O - Last 24 hours: Intake & Output 06/03/17 06/04/17 06/04/17 22:59 06:59 14:59 Intake Total 1586 1000 Output Total 925 1925 Balance 661 -925 Lab Results - Last 24 hrs: Laboratory Results - last 24 hr 06/04/17 Range/Units 04:45 INR 3.03 H (0.86-1.11) Med Orders - Current: Current Medications Acetaminophen (Tylenol) 325 mg PO Q4H PRN PRN Reason: Pain (Mild 1-3)/fever Aspirin (Aspirin) 81 mg PO DAILY [facility] Last Admin: 06/04/17 08:24 Dose: 81 mg Atorvastatin Calcium (Lipitor) 40 mg PO BEDTIME [facility] Last Admin: 06/03/17 20:19 Dose: 40 mg Bupropion HCl (Wellbutrin Xl) 150 mg PO DAILY [facility] Last Admin: 06/04/17 08:23 Dose: 150 mg Digoxin (Lanoxin) 125 mcg PO DAILY [facility] Last Admin: 06/04/17 08:24 Dose: 125 mcg Diltiazem HCl (Cardizem Cd) 120 mg PO DAILY [facility] Last Admin: 06/04/17 08:23 Dose: 120 mg Docusate Sodium (Colace) 100 mg PO BID [facility] Last Admin: 06/04/17 08:24 Dose: 100 mg Glimepiride (Amaryl) 2 mg PO WITHBREAKFAST [facility] Last Admin: 06/04/17 08:24 Dose: 2 mg Piperacillin Sod/Tazobactam (Sod 3.375 gm/ Sodium Chloride) 50 mls @ 100 mls/ hr IV Q6H [facility] Last Admin: 06/04/17 05:46 Dose: 100 mls/hr Latanoprost (Xalatan 0.005% Ophth Soln) 0 ml EYEBOTH BEDTIME [facility] Last Admin: 06/03/17 20:27 Dose: 1 drop Lorazepam (Ativan) 1 mg IVPUSH Q4H PRN PRN Reason: Anxiety Metoprolol Tartrate (Lopressor) 150 mg PO BID [facility] Last Admin: 06/04/17 08:24 Dose: 150 mg Ondansetron HCl (Zofran Odt) 4 mg PO Q4H PRN PRN Reason: nausea, able to take PO Paroxetine HCl (Paxil) 10 mg PO BID [facility] Last Admin: 06/04/17 08:25 Dose: 10 mg Brimonidine Tartrate (1 Drop) 1 each EYEBOTH BID [facility] Last Admin: 06/04/17 08:28 Dose: 1 each Potassium Chloride (Potassium Chloride) 40 meq PO DAILY [facility] Last Admin: 06/04/17 08:22 Dose: 40 meq Quetiapine Fumarate (Seroquel) 50 mg PO BEDTIME [facility] Last Admin: 06/03/17 21:16 Dose: 50 mg Sodium Chloride (Saline Flush) 10 ml FLUSH ASDIRECTED PRN PRN Reason: Keep Vein Open Sodium Chloride (Saline Flush) 2.5 ml FLUSH ASDIRECTED PRN PRN Reason: Keep Vein Open Temazepam (Restoril) 15 mg PO BEDTIME PRN PRN Reason: Sleep Last Admin: 06/01/17 23:07 Dose: 15 mg Triamcinolone Acetonide (Kenalog 0.1% Crm) 0 gm TOP TID [facility] Last Admin: 06/04/17 05:47 Dose: 1 applic Warfarin Sodium (Coumadin) 2.5 mg PO SuMoWeFr@2100 [facility] Warfarin Sodium (Coumadin) 5 mg PO TuThSa@2100 [facility] Discontinued Medications Piperacillin Sod/Tazobactam (Sod 3.375 gm/ Sodium Chloride) 50 mls @ 100 mls/ hr IV Q6H [facility] Last Admin: 05/31/17 10:09 Dose: Not Given Magnesium Sulfate 2 gm/ Premix 50 mls @ 50 mls/hr IV ONETIME ONE Stop: 05/31/17 10:06 Last Admin: 05/31/17 09:58 Dose: 50 mls/hr Magnesium Sulfate 2 gm/ Premix 50 mls @ 50 mls/hr IV ONETIME ONE Stop: 06/01/17 09:14 Last Admin: 06/01/17 08:30 Dose: 50 mls/hr Morphine Sulfate (Morphine) 2 mg IVPUSH Q2H PRN PRN Reason: Pain (severe 7-10) Stop: 05/31/17 20:39 Quetiapine Fumarate (Seroquel) 50 mg PO BEDTIME [facility] Last Admin: 05/30/17 22:00 Dose: 50 mg Quetiapine Fumarate (Seroquel) 100 mg PO BEDTIME [facility] Last Admin: 06/02/17 20:55 Dose: 100 mg Warfarin Sodium (Coumadin) 2.5 mg PO MOFR@2100 [facility] Last Admin: 05/31/17 21:24 Dose: 2.5 mg Warfarin Sodium (Coumadin) 5 mg PO SUTUWETHSA@2100 [facility] Last Admin: 05/30/17 23:50 Dose: 5 mg - Exam General: Reports: alert, oriented HEENT: Reports: Pupils equal, EOMI Neck: Reports: supple, trachea midline Lungs: Reports: Clear to auscultation, Normal respiratory effort Cardiovascular: Reports: Regular Rate, Regular Rhythm Abdomen: Reports: bowel sounds present, soft, no tenderness (Male) Exam: Other (castro draining yellow urine) Extremities: Reports: no edema Skin: Reports: warm, dry, intact Neurological: Reports: no new focal deficit Psy/Mental Status: Reports: alert, normal affect, normal mood *Q Meaningful Use (DIS) - VTE *Q VTE Criteria *Q: - Stroke *Q Stroke Criteria *Q: - AMI *Q AMI Criteria *Q:
[2017-06-04 11:47] VITALS: BP 137/76
[2017-06-04] MEDS ORDERED: Warfarin 5 MG Tab PO SCH (21:00)
== END 2017-06-04 12:00 | DRG 872 ==
LOC: MW.ED 17:13 → MW.MS 19:40
PROVIDERS: ADMIT Family Medicine; ATTEND Family Medicine
DX: A41.9 Sepsis, unspecified organism (principal); N39.0 Urinary tract infection, site not specified; B96.89 Other specified bacterial agents as the cause of diseases classified elsewhere; I48.91 Unspecified atrial fibrillation; E11.9 Type 2 diabetes mellitus without complications; Z95.0 Presence of cardiac pacemaker; F03.90 Unspecified dementia, unspecified severity, without behavioral disturbance, psychotic disturbance, mood disturbance, and anxiety; E78.00 Pure hypercholesterolemia, unspecified; I10 Essential (primary) hypertension; J44.9 Chronic obstructive pulmonary disease, unspecified; I73.9 Peripheral vascular disease, unspecified; F32.9 Major depressive disorder, single episode, unspecified; Z79.82 Long term (current) use of aspirin; Z79.01 Long term (current) use of anticoagulants; Z87.891 Personal history of nicotine dependence; Z79.899 Other long term (current) drug therapy; Z91.81 History of falling; D72.829 Elevated white blood cell count, unspecified; R45.1 Restlessness and agitation; Z66 Do not resuscitate
CPT/HCPCS: 36415; 36600; 70450; 70450-26; 71020; 71020-26; 73521; 73521-26; 80048; 80053; 80162; 81001; 82803; 82962; 83605; 83735; 84484; 85025; 85610; 87040; 87086; 87088; 87186; 93005; 97110-GP; 97116-GP; 97161-GP; 99283; 99285-25; A9270-GY; J2543; J3475; J7050